=== PATIENT | female | born 1945 | race Caucasian/White ===

== ENCOUNTER 2016-08-16 16:31 | Inpatient (IN) | payer MEDICARE ==
[~2016-08-16] VITALS: Ht 165.1 cm; Wt 89.8 kg
[~2016-08-16 16:31] MED LIST: ASPI1TAB69 PO; LISI-519 PO; METF1000 PO; OXYB5TAB10 PO; PRED20 PO; SPIRCAP INH; VENTAER INH; VITA100064 PO
[2016-08-16 16:33] VITALS: BP 120/55; PULSE 123; RESP 20; TEMP 98.1; O2SAT 92
[2016-08-16] MEDS ORDERED: SODIUM CHLOR 0.9% 1000 ML INJ 1,000 ML IV SCH ×2 (16:47→18:04)
[2016-08-16] MEDS ORDERED: MORPHINE SULFATE 4 MG/ML INJ IV PUSH ONE (17:00)
--- NOTE | 2016-08-16 17:18 | PD ---
HPI Chief Complaint: Abdominal Pain Time Seen by Provider: 17:13 Travel History International Travel<30 days: No Contact w/Intl Traveler<30days: No Traveled to known affect area: No History of Present Illness HPI 71-year-old female that presents to the ED for evaluation of epigastric pain as well as chest pain. Per patient she's had this for the past 2-3 days. Per patient his been worsening with today being the worse today. Per patient he radiates to the back. Per patient she does have a history of COPD and feels short of breath. Per patient most of the pain is actually in the epigastric area on the abdomen. Per patient she's had normal bowel movements her last bowel movement being yesterday. Per patient she feels nauseous. Per patient the pain is severe sharp 8 out of 10 and feels more constant. She's not been able to eat anything because of the pain. She has not taken anything for this. Per patient she's not been able to keep anything down and she did not take any of her medications today. She has an allergy to morphine. She denies any numbness, tilling, weakness. No trauma. No sick contacts. States having chills and fevers. Per patient on she started having generalized weakness and cold like symptoms and thought he was just a cold but he never went away. Now she is worse. She denies any recent travel. Nothing seems to make the symptoms better. Touching the abdomen makes it worse. PFSH Past Medical History Cancer: Yes (OVARIAN AND CERVICAL) Cardiovascular Problems: Yes COPD: Yes Diabetes: Yes Patient Takes Glucophage: Yes Diminished Hearing: No Respiratory: Yes (COPD) Tetanus Vaccination: Unknown Past Surgical History Abdominal Surgery: Yes (HIATAL HERNIA) Appendectomy: Yes (NOT SURE) Cholecystectomy: Yes Hysterectomy: Yes Other Surgery: Yes (SPLEENECTOMY) Social History Alcohol Use: Yes (WHISKEY A NIGHT) Tobacco Use: No (QUIT 7 YRS AGO) Substance Use: No Allergies-Medications (Allergen,Severity, Reaction): Coded Allergies: Morphine (Verified Allergy, Severe, 08/16/16) Reported Meds & Prescriptions Reported Meds & Active Scripts Active Reported Vitamin D (Cholecalciferol) 1,000 Unit Tab 2,000 Units PO DAILY Ventolin Hfa 18 GM Inh (Albuterol Sulfate) 90 Mcg/Act Aer 2 Puff INH Q4-6H PRN Spiriva Handihaler (Tiotropium Inh) 18 Mcg Cap 18 Mcg INH DAILY 1 capsule = 18 mcg Prednisone 20 Mg Tab 40 Mg PO BID Ditropan (Oxybutynin Chloride) 5 Mg Tab 5 Mg PO Q12HR Aspirin 81 Mg Tabdr 81 Mg PO DAILY Metformin (Metformin HCl) 1,000 Mg Tab 1,000 Mg PO BIDPC With meals Lisinopril 5 Mg Tab 5 Mg PO DAILY Review of Systems General / Constitutional: Positive: Fever, Chills, No: Weight Gain, Weight Loss, Other Eyes: No: Diploplia, Blurred Vision, Photophobia, Drainage, Redness, Foreign Body Sensation, Pain, Tearing, Blind Spots, Visual changes, Blindness, Other HENT: Positive: Sore Throat, Rhinitis, Congestion, No: Headaches, Vertigo, Lightheadedness, Rhinorrhea, Nosebleed, Neck Stiffness, Neck Pain, Masses, Gingival Bleeding, Dental Difficulties, Ear Discharge, Earache, Other Cardiovascular: Positive: Chest Pain or Discomfort Respiratory: Positive: Cough, Shortness of Breath, Wheezing, No: Sneezing, Orthopnea, Hemoptysis, Stridor, Night Sweats, Pleuritic Pain, Other Gastrointestinal: Positive: Nausea, Vomiting, Abdominal Pain, No: Diarrhea, Hematemesis, Hematochezia, Constipation, Changes in Bowel Habits, Indigestion, Dysphagia, Loss of Appetite, Other Genitourinary: No: Urgency, Frequency, Dysuria, Nocturia, Hematuria, Decreased Urinary Output, Oliguria, Hesitancy, Dribbling, Incontinence, Pelvic Pain, Flank Pain, Dyspareunia, Discharge, Dysmenorrhea, Menorrhagia, Metorrhagia, Vaginal Bleeding, Other Musculoskeletal: No: Myalgias, Arthralgias, Limited ROM, Weakness, Cramping, Edema, Pain, Atrophy, Other Skin: No Rash, No Itching, No Dryness, No Lumps, No Hives, No Change in Pigmentation, No Change in nails, No Alopecia, No Lesions, No Breast Lumps, No Breast Tenderness, No Breast Swelling, No Other Neurologic: No: Weakness, Dizziness, Syncope, Focal Abnormalities, Coordination Problem, Tremor, Ataxia, Headache, Change in Mentation, Slurred Speech, Paresthesia, Incontinence, Seizures, Sensory Disturbance, Other Psychiatric: No: Anxiety, Depression, Suicidal Ideations, Disorder of Thought, Mood Disorder, Substance Abuse, Homicidal Ideation, Other Endocrine: No: Heat Intolerance, Cold Intolerance, Polyuria, Polydipsia, Other Hematologic/Lymphatic: No: Easy Bruising, Lymph Node Enlargement, Other Physical Exam Narrative GENERAL: Well-nourished, well-developed patient in no apparent distress. SKIN: Warm and dry. HEAD: Atraumatic. Normocephalic. EYES: Pupils equal and round reactive to light and accommodation. No scleral icterus. No injection or drainage. ENT: No nasal bleeding or discharge. Mucous membranes pink and moist. TMs are clear with no sign of infection or perforation. No mastoid tenderness. Ear canals are intact bilaterally. No lymphadenopathy. Nostril mucosa is red and moist with clear mucus noted. No sinus tenderness to palpation noted. Tonsils are not enlarged or swollen. No ulvua Deviation. Tongue is midline. NECK: Trachea midline. No JVD. No meningeal signs noted CARDIOVASCULAR: Regular rate and rhythm. RESPIRATORY: No accessory muscle use. Patient has wheezing heard in all lung johnson. Breath sounds equal bilaterally. GASTROINTESTINAL: Abdomen soft, patient has tenderness to palpation mainly in the epigastric area but diffuse., nondistended. Hepatic and splenic margins not palpable. MUSCULOSKELETAL: Extremities without clubbing, cyanosis, or edema. No obvious deformities. Full range of motion of the upper and lower extremities bilaterally. 2+ pulses bilaterally. NEUROLOGICAL: Awake and alert. No obvious cranial nerve deficits. Motor grossly within normal limits. Five out of 5 muscle strength in the arms and legs. Normal speech. PSYCHIATRIC: Appropriate mood and affect; insight and judgment normal. Data Data Last Documented VS Vital Signs Date Time Temp Pulse Resp B/P Pulse Ox O2 Delivery O2 Flow Rate FiO2 08/16/16 19:21 94 20 212/89 95 2 08/16/16 16:33 98.1 Orders Electrocardiogram (08/16/16 16:47) Complete Blood Count With Diff (08/16/16 16:47) Comprehensive Metabolic Panel (08/16/16 16:47) Ckmb (Isoenzyme) Profile (08/16/16 16:47) Troponin I (08/16/16 16:47) Prothrombin Time / Inr (Pt) (08/16/16 16:47) Act Partial Throm Time (Ptt) (08/16/16 16:47) Blood Culture (08/16/16 16:47) Lipase (08/16/16 16:47) Urinalysis - C+S If Indicated (08/16/16 16:47) Magnesium (Mg) (08/16/16 16:47) Chest, Single Ap (08/16/16 16:47) Iv Access Insert/Monitor (08/16/16 16:47) Ecg Monitoring (08/16/16 16:47) Oximetry (08/16/16 16:47) Lactic Acid (08/16/16 16:47) Morphine Inj (Morphine Inj) (08/16/16 17:00) Sodium Chlor 0.9% 1000 Ml Inj (Ns 1000 M (08/16/16 16:47) Albuterol Neb (Albuterol Neb) (08/16/16 17:00) Hydromorphone Pf Inj (Dilaudid Pf Inj) (08/16/16 17:30) Ct Abd/Pel W/O Iv Contrast (08/16/16 ) Sodium Chlor 0.9% 1000 Ml Inj (Ns 1000 M (08/16/16 18:04) Hydromorphone Pf Inj (Dilaudid Pf Inj) (08/16/16 19:45) Labs Laboratory Tests Test 08/16/16 17:20 White Blood Count 23.5 TH/MM3 Red Blood Count 4.94 MIL/MM3 Hemoglobin 14.6 GM/DL Hematocrit 45.7 % Mean Corpuscular Volume 92.4 FL Mean Corpuscular Hemoglobin 29.6 PG Mean Corpuscular Hemoglobin 32.0 % Concent Red Cell Distribution Width 15.0 % Platelet Count 339 TH/MM3 Mean Platelet Volume 10.1 FL Neutrophils (%) (Auto) 92.1 % Lymphocytes (%) (Auto) 3.0 % Monocytes (%) (Auto) 3.9 % Eosinophils (%) (Auto) 0.1 % Basophils (%) (Auto) 0.9 % Neutrophils # (Auto) 21.6 TH/MM3 Lymphocytes # (Auto) 0.7 TH/MM3 Monocytes # (Auto) 0.9 TH/MM3 Eosinophils # (Auto) 0.0 TH/MM3 Basophils # (Auto) 0.2 TH/MM3 CBC Comment DIFF FINAL Differential Comment Prothrombin Time 12.0 SEC Prothromb Time International 1.1 RATIO Ratio Activated Partial 25.0 SEC Thromboplast Time Sodium Level 135 MEQ/L Potassium Level 4.7 MEQ/L Chloride Level 100 MEQ/L Carbon Dioxide Level 21.7 MEQ/L Anion Gap 13 MEQ/L Blood Urea Nitrogen 44 MG/DL Creatinine 1.89 MG/DL Estimat Glomerular Filtration 26 ML/MIN Rate Random Glucose 165 MG/DL Lactic Acid Level 2.1 mmol/L Calcium Level 8.9 MG/DL Magnesium Level 1.2 MG/DL Total Bilirubin 0.5 MG/DL Aspartate Amino Transf 34 U/L (AST/SGOT) Alanine Aminotransferase 29 U/L (ALT/SGPT) Alkaline Phosphatase 87 U/L Total Creatine Kinase 71 U/L Troponin I LESS THAN 0.02 NG/ML Total Protein 7.7 GM/DL Albumin 3.4 GM/DL Lipase 84572 U/L [facility] Medical Decision Making Medical Screen Exam Complete: Yes Emergency Medical Condition: Yes Medical Record Reviewed: Yes Interpretation(s) Last Impressions Chest X-Ray 08/16/16 1647 Signed Impressions: Service Date/Time: Tuesday, August 16, 2016 16:59 - CONCLUSION: 1. Elevation of the left hemidiaphragm as described above. 2. Minimal bibasilar parenchymal changes. Lizandro Schuler MD FACR Abdomen/Pelvis CT 08/16/16 0000 Signed Impressions: Service Date/Time: Tuesday, August 16, 2016 18:11 - CONCLUSION: Acute pancreatitis. Severe hepatic steatosis. Status post splenectomy, cholecystectomy and hysterectomy. Nonobstructing right renal calculus. Air within the urinary bladder. No evidence of extra intestinal abscess. Mohamud Palencia MD CBC & BMP Diagram 08/16/16 17:20 LFTs within normal limits. Lipase of 10,000. Troponin negative. PT and PTT within normal limits. Differential Diagnosis Chest pain versus atypical chest pain versus acute abdomen versus gastritis versus diverticulitis versus abscess versus obstruction versus pancreatitis versus COPD exacerbation versus pneumonia Narrative Course 71-year-old female that presents to the ED for evaluation of chest pain. Patient was properly examined and was found to have signs and symptoms consistent with appears to be more like abdominal discomfort. Patient states that symptoms started with cold-like symptoms. Patient has abdominal discomfort. Patient is tachycardic on exam. Labs and imaging were ordered. Patient was given IV fluids as well as antiemetics and pain medication. Patient agrees for usto proceed with plan. Labs and imaging show what appears to be acute pancreatitis with sepsis. Likely secondary to the pancreatitis and dehydration. Patient was given IV fluids and given pain medications. Case discussed in my attending who agrees with plan. Case discussed with Dr. Glover who agrees to admission to [facility]. Sepsis Criteria SIRS Criteria (2 or more): Heart rate over 90, WBC > 65930, < 4000 or > 10% bands Sepsis Criteria (SIRS+source): Infect source susp/known Severe Sepsis (+one): Lactate >2 Criteria Outcome: Meets severe sepsis criteria Diagnosis Primary Impression: Pancreatitis, acute Qualified Code: K85.90 - Acute pancreatitis, unspecified complication status, unspecified pancreatitis type Additional Impressions: Sepsis Qualified Code: A41.9 - Sepsis, due to unspecified organism Acute kidney injury Admitting Information Admitting Physician Requests: Admit Phillip De Oliveira Aug 16, 2016 17:18
--- NOTE | 2016-08-16 17:27 | RADRPT ---
EXAM DATE/TIME: 08/16/2016 16:59 [facility] COMPARISON: CHEST PA & LAT, May 03, 2016, 11:22. INDICATIONS : Chest pain. MEDICAL HISTORY : None. SURGICAL HISTORY : None. ENCOUNTER: Initial ACUITY: 1 day PAIN SCORE: 6/10 LOCATION: Bilateral chest FINDINGS: There is elevation of the left hemidiaphragm. Minimal bibasilar parenchymal changes are noted. Hear t and pulmonary vascularity are normal. Portion of the bony skeleton visualized are unremarkable. CONCLUSION: 1. Elevation of the left hemidiaphragm as described above. 2. Minimal bibasilar parenchymal changes. Lizandro Schuler MD FACR on August 16, 2016 at 17:21 Board Certified Radiologist. This report was verified electronically.
[2016-08-16] MEDS ORDERED: HYDROmorphone HCL PF 1 MG/ML VIAL IV PUSH ONE ×2 (17:30→19:45)
[2016-08-16] MEDS: RESP: ALBUTEROL 2.5 MG/3 ML NEB (SCH) INH ×2 (17:31→17:32)
[2016-08-16 17:34] LABS: AUTOMATED NEUTROPHIL # 21.6 TH/MM3 (1.8-7.7); BASOPHIL # 0.2 TH/MM3 (0-0.2); BASOPHIL % 0.9 % (0.0-2.0); EOSINOPHIL % 0.1 % (0.0-4.0); HEMATOCRIT 45.7 % (35.0-46.0); HEMO FLAGS DIFF FINAL; LYMPHOCYTE # 0.7 TH/MM3 (1.0-4.8); MEAN CELL VOLUME 92.4 FL (80.0-100.0); MEAN CORPUSCULAR HEMOGLOBIN 29.6 PG (27.0-34.0); MONO % 3.9 % (0.0-8.0); NEUT % 92.1 % (16.0-70.0); PLATELET COUNT 339 TH/MM3 (150-450); RED BLOOD COUNT 4.94 MIL/MM3 (4.00-5.30); WHITE BLOOD COUNT 23.5 TH/MM3 (4.0-11.0)
[2016-08-16 17:40] VITALS: O2SAT 99
[2016-08-16 17:43] VITALS: BP 183/84; PULSE 105; RESP 22; O2SAT 99
[2016-08-16 17:46] LABS: INTERNATIONAL NORMALIZED RATIO 1.1 RATIO
[2016-08-16 17:56] LABS: ALKALINE PHOSPHATASE 87 U/L (45-117); ALT (GPT) 29 U/L (10-53); ANION GAP 13 MEQ/L (5-15); AST (GOT) 34 U/L (15-37); BICARBONATE 21.7 MEQ/L (21.0-32.0); BLOOD UREA NITROGEN 44 MG/DL (7-18); CHLORIDE 100 MEQ/L (98-107); GLOMERULAR FILTRATION RATE 26 ML/MIN (>89); MAGNESIUM 1.2 MG/DL (1.5-2.5); POTASSIUM 4.7 MEQ/L (3.5-5.1); SODIUM (NA) 135 MEQ/L (136-145); TOTAL BILIRUBIN ADULT 0.5 MG/DL (0.2-1.0)
[2016-08-16 17:59] LABS: CREATINE KINASE 71 U/L (26-192)
--- NOTE | 2016-08-16 19:16 | RADRPT ---
EXAM DATE/TIME: 08/16/2016 18:11 [facility] COMPARISON: No previous studies available for comparison. INDICATIONS : Epigastric pain since yesterday. ORAL CONTRAST: No oral contrast ingested. RADIATION DOSE: 10.03 CTDIvol (mGy) MEDICAL HISTORY : Hernia, hiatal. diabetes, ovarian cancer, cervical cancer SURGICAL HISTORY : Hysterectomy. Appendectomy. ENCOUNTER: Initial ACUITY: 2 days PAIN SCALE: 6/10 LOCATION: epigastric abdomen TECHNIQUE: Volumetric scanning of the abdomen and pelvis was performed. Using automated exposure control and ad justment of the mA and/or kV according to patient size, radiation dose was kept as low as reasonably achievable to obtain optimal diagnostic quality images. FINDINGS: LOWER LUNGS: The visualized lower lungs are clear except for mild parenchymal scarring. LIVER: The liver is diffusely hypodense. There are no focal lesions or evidence of biliary duct dilatation. Postcholecystectomy clips are noted. SPLEEN: Spleen appears to have been removed. A small residual splenic remnant is noted. Small fluid collectio n is identified in the left subphrenic region. PANCREAS: Generalized peripancreatic inflammation is identified. The inflammation extends caudally into the ant erior pararenal space and mesentery. KIDNEYS: Small calculus is identified in the right kidney. There is no evidence of hydronephrosis. Kidneys are small. ADRENAL GLANDS: 18 mm hypodense nodule is identified in the left adrenal gland. VASCULAR: There is no aortic aneurysm. BOWEL/MESENTERY: The stomach, small bowel, and colon demonstrate no acute abnormality. There is no free intraperitone al air or fluid. ABDOMINAL WALL: Within normal limits. RETROPERITONEUM: There is no lymphadenopathy. BLADDER: Air is identified in the urinary bladder. REPRODUCTIVE: Uterus has been removed. There are no central pelvic or adnexal masses. INGUINAL: There is no lymphadenopathy or hernia. MUSCULOSKELETAL: Within normal limits for patient age. CONCLUSION: Acute pancreatitis. Severe hepatic steatosis. Status post splenectomy, cholecystectomy and hysterectomy. Nonobstructing right renal calculus. Air within the urinary bladder. No evidence of extra intestinal abscess. Mohamud Palencia MD on August 16, 2016 at 19:07 Board Certified Radiologist. This report was verified electronically.
[2016-08-16 19:21] VITALS: BP 212/89; PULSE 94; RESP 20; O2SAT 95
[2016-08-16] MEDS ORDERED: SODIUM CHLOR 0.45% 1000 ML INJ 1,000 ML IV SCH (20:59)
[2016-08-16] MEDS ORDERED: ONDANSETRON HCL 4 MG/2 ML VIAL IVP PRN (21:00)
[2016-08-16] MEDS ORDERED: SODIUM CHLORIDE 0.9% FLUSH 5 ML FLUSH FLUSH PRN (21:00)
[2016-08-16] MEDS ORDERED: ALBUTEROL SULFATE 90 MCG/ACT HFA 8 GM INHALER INH PRN (21:00)
[2016-08-16] MEDS ORDERED: NALOXONE HCL 0.4 MG/ML AMP IV PRN (21:00)
[2016-08-16] MEDS ORDERED: ENALAPRILAT 1.25 MG/ML VIAL IV PUSH PRN (21:00)
[2016-08-16 21:04] VITALS: BP 185/84; PULSE 93; RESP 18; O2SAT 95
--- NOTE | 2016-08-16 21:17 | HHI.HP ---
HPI Service [facility] Hospitalists Primary Care Physician Frankie Jaeger Admission Diagnosis acute pancreatitis, sepsis, acute kidney injury Chief Complaint: abdominal pain cough increasing over 3 days Travel History International Travel<30 Days: No Contact w/Intl Traveler <30 Da: No Traveled to Known Affected Are: No Sepsis Criteria SIRS Criteria (2 or more): Heart rate over 90, WBC > 97308, < 4000 or > 10% bands Severe Sepsis (+one): Lactate >2 History of Present Illness 71-year-old female that presents to the ED for evaluation of epigastric pain as well as chest pain. Per patient she's had this for the past 2-3 days. Per patient his been worsening with today being the worse today. Per patient he radiates to the back. Per patient she does have a history of COPD and feels short of breath. Per patient most of the pain is actually in the epigastric area on the abdomen. Per patient she's had normal bowel movements her last bowel movement being yesterday. Patient has had nausea. Per patient the pain is severe sharp 8 out of 10 and feels more constant. She's not been able to eat anything because of the pain. She has not taken anything for this. Per patient she's not been able to keep anything down and she did not take any of her medications today. She has an allergy to morphine. She denies any numbness , tilling, weakness. No trauma. No sick contacts. States having chills and fevers. Per patient on she started having generalized weakness and cold like symptoms and thought he was just a cold but he never went away. Now she is worse. She denies any recent travel. Nothing seems to make the symptoms better. Touching the abdomen makes it worse. Lab and CT show acute pancreatitis with lab evidence of sepsis will admit ,patient was on medication for recent UTI. Review of Systems Constitutional: COMPLAINS OF: Fatigue, Fever, Change in appetite Respiratory: COMPLAINS OF: Cough, Shortness of breath Gastrointestinal: COMPLAINS OF: Abdominal pain, Nausea Past Family Social History Past Medical History dm,hypertension,,hiatal hernia,copd Past Surgical History spleen,appendix Reported Medications nebulizer,prednisone when has exacerbations of copd,ditropan 5mg,asa,metformin 1000 bid,gliperide,lisinopril Allergies: Coded Allergies: Morphine (Verified Allergy, Severe, 08/16/16) Social History whiskey daily former smoker Physical Exam Vital Signs Vital Signs Date Time Temp Pulse Resp B/P Pulse Ox O2 Delivery O2 Flow Rate FiO2 08/16/16 19:21 94 20 212/89 95 2 08/16/16 17:43 105 22 183/84 99 08/16/16 17:40 99 08/16/16 16:33 98.1 123 20 120/55 92 Physical Exam GENERAL: This is a well-nourished, well-developed patient, in no apparent distress. SKIN: No rashes, ecchymoses or lesions. Cool and dry. HEAD: Atraumatic. Normocephalic. No temporal or scalp tenderness. EYES: Pupils equal round and reactive. Extraocular motions intact. No scleral icterus. No injection or drainage. ENT: Nose without bleeding, purulent drainage or septal hematoma. Throat without erythema, tonsillar hypertrophy or exudate. Uvula midline. Airway patent. NECK: Trachea midline. No JVD or lymphadenopathy. Supple, nontender, no meningeal signs. CARDIOVASCULAR: Regular rate and rhythm without murmurs, gallops, or rubs. RESPIRATORY: Clear to auscultation. Breath sounds equal bilaterally. No wheezes , rales, or rhonchi. GASTROINTESTINAL: Abdomen -tender to palpation no rebound, nondistended. No hepato-splenomegaly, or palpable masses. mild guarding. MUSCULOSKELETAL: Extremities without clubbing, cyanosis, or edema. No joint tenderness, effusion, or edema noted. No calf tenderness. Negative Homans sign bilaterally. NEUROLOGICAL: Awake and alert. Cranial nerves II through XII intact. Motor and sensory grossly within normal limits. Five out of 5 muscle strength in all muscle groups. Normal speech. Laboratory Laboratory Tests Test 08/16/16 17:20 White Blood Count 23.5 Red Blood Count 4.94 Hemoglobin 14.6 Hematocrit 45.7 Mean Corpuscular Volume 92.4 Mean Corpuscular Hemoglobin 29.6 Mean Corpuscular Hemoglobin 32.0 Concent Red Cell Distribution Width 15.0 Platelet Count 339 Mean Platelet Volume 10.1 Neutrophils (%) (Auto) 92.1 Lymphocytes (%) (Auto) 3.0 Monocytes (%) (Auto) 3.9 Eosinophils (%) (Auto) 0.1 Basophils (%) (Auto) 0.9 Neutrophils # (Auto) 21.6 Lymphocytes # (Auto) 0.7 Monocytes # (Auto) 0.9 Eosinophils # (Auto) 0.0 Basophils # (Auto) 0.2 CBC Comment DIFF FINAL Differential Comment Prothrombin Time 12.0 Prothromb Time International 1.1 Ratio Activated Partial 25.0 Thromboplast Time Sodium Level 135 Potassium Level 4.7 Chloride Level 100 Carbon Dioxide Level 21.7 Anion Gap 13 Blood Urea Nitrogen 44 Creatinine 1.89 Estimat Glomerular Filtration 26 Rate Random Glucose 165 Lactic Acid Level 2.1 Calcium Level 8.9 Magnesium Level 1.2 Total Bilirubin 0.5 Aspartate Amino Transf 34 (AST/SGOT) Alanine Aminotransferase 29 (ALT/SGPT) Alkaline Phosphatase 87 Total Creatine Kinase 71 Troponin I LESS THAN 0.02 Total Protein 7.7 Albumin 3.4 Lipase 01853 Date/Time Procedure Status Source Growth 08/16/16 17:20 Aerobic Blood Culture Received Blood Peripheral Pending 08/16/16 17:20 Anaerobic Blood Culture Received Blood Peripheral Pending Result Diagram: 08/16/16 1720 08/16/16 1720 Imaging Last 24 hours Impressions Chest X-Ray 08/16/16 1647 Signed Impressions: Service Date/Time: Tuesday, August 16, 2016 16:59 - CONCLUSION: 1. Elevation of the left hemidiaphragm as described above. 2. Minimal bibasilar parenchymal changes. Lizandro Schuler MD FACR Abdomen/Pelvis CT 08/16/16 0000 Signed Impressions: Service Date/Time: Tuesday, August 16, 2016 18:11 - CONCLUSION: Acute pancreatitis. Severe hepatic steatosis. Status post splenectomy, cholecystectomy and hysterectomy. Nonobstructing right renal calculus. Air within the urinary bladder. No evidence of extra intestinal abscess. Mohamud Palencia MD Course in er given hydromorph for pain started on IV fluids as labs do show renal insufficency Assessment and Plan Problem List: (1) Pancreatitis, acute Status: Acute Plan: plan IV fluid follow labs pain control consult GI (2) Sepsis Status: Acute Plan: related to pancreatitis will get blood cultures and start zosyn antibiotics follow labs (3) Acute kidney injury Status: Acute Plan: do not have baseline will give IV fluid and recheck labs in am (4) Diabetes Status: Chronic Plan: patient NPO will use sliding scale and hold metformin and other po medication (5) Hypertension Status: Chronic Plan: use vasotec prn Assessment and Plan further plan as case develops Code Status full Discussed Condition With patient Physician Certification 2 Midnight Certification Type: Admission for Inpatient Services Order for Inpatient Services The services are ordered in accordance with Medicare regulations or non- Medicare payer requirements, as applicable. In the case of services not specified as inpatient-only, they are appropriately provided as inpatient services in accordance with the 2-midnight benchmark. Estimated LOS (days): 3 3 days is the estimated time the patient will need to remain in the hospital, assuming treatment plan goals are met and no additional complications. Post-Hospital Plan: Not yet determined Problem Qualifiers (1) Pancreatitis, acute: Qualified Code: K85.90 - Acute pancreatitis, unspecified complication status, unspecified pancreatitis type (2) Sepsis: Qualified Code: A41.9 - Sepsis, due to unspecified organism (3) Diabetes: Raymundo Bradford MD Aug 16, 2016 21:17
[2016-08-16] MEDS ORDERED: GLUCAGON 1 MG/ML VIAL OTHER PRN (21:30)
[2016-08-16] MEDS ORDERED: DEXTROSE 50% IN WATER 50 ML VIAL(D50) IV PUSH PRN (21:30)
[2016-08-16] MEDS: SODIUM CHLORIDE 0.9% FLUSH 5 ML FLUSH FLUSH SCH (21:46)
[2016-08-16] MEDS: HYDROmorphone HCL PF 1 MG/ML VIAL IV PRN (21:51)
[2016-08-16 22:10] VITALS: BP 162/76; PULSE 92; RESP 18; O2SAT 96
[2016-08-16] MEDS: PIPERACIL-TAZO 3.375 GM PREMIX 50 ML IV SCH (22:18)
[2016-08-16] MEDS: OXYBUTYNIN CHLORIDE 5 MG TAB PO SCH (22:24)
[2016-08-17] VITALS (8 sets, daily range): BP systolic 113–152; BP diastolic 65–80; PULSE 99–110; RESP 18–20; TEMP 95.9–99.2; O2SAT 94–96
[2016-08-17] MEDS: HYDROmorphone HCL PF 1 MG/ML VIAL IV PRN ×5 (01:08→21:54)
[2016-08-17] MEDS: PIPERACIL-TAZO 3.375 GM PREMIX 50 ML IV SCH ×3 (05:21→21:43)
[2016-08-17] MEDS: INSULIN ASPART SUPPLEMENTAL SCALE SQ SCH ×4 (05:23→21:55)
[2016-08-17 07:58] LABS: AUTOMATED NEUTROPHIL # 23.2 TH/MM3 (1.8-7.7); BASOPHIL % 0.1 % (0.0-2.0); HEMATOCRIT 38.5 % (35.0-46.0); HEMO FLAGS DIFF FINAL; LYMPH % 3.9 % (9.0-44.0); MEAN CELL VOLUME 92.3 FL (80.0-100.0); MEAN CORPUSCULAR HEMOGLOBIN 29.5 PG (27.0-34.0); MEAN CORPUSCULAR HGB CONC 31.9 % (32.0-36.0); MONO % 7.6 % (0.0-8.0); NEUT % 88.4 % (16.0-70.0); PLATELET COUNT 281 TH/MM3 (150-450); RED BLOOD COUNT 4.17 MIL/MM3 (4.00-5.30); RED CELL DISTRIBUTION WIDTH 14.7 % (11.6-17.2); WHITE BLOOD COUNT 26.2 TH/MM3 (4.0-11.0)
[2016-08-17] MEDS: RESP: ALBUTEROL 2.5 MG/IPRATROPIUM 0.5 MG NEB (SCH) NEB ×3 (08:00→20:46)
[2016-08-17 08:26] LABS: BICARBONATE 20.8 MEQ/L (21.0-32.0); CALCIUM-PROTEIN CORRECTED 7.9 MG/DL (8.5-10.1); POTASSIUM 4.1 MEQ/L (3.5-5.1); TOTAL BILIRUBIN ADULT 0.6 MG/DL (0.2-1.0)
[2016-08-17] MEDS: TIOTROPIUM BROMIDE 18 MCG INH INH SCH (09:00)
[2016-08-17] MEDS: OXYBUTYNIN CHLORIDE 5 MG TAB PO SCH ×2 (09:01→21:51)
[2016-08-17] MEDS: ASPIRIN EC 81 MG TABEC PO SCH (09:01)
[2016-08-17] MEDS: CHOLECALCIFEROL (VIT D3) 1000 UNIT TAB PO SCH (09:01)
[2016-08-17] MEDS: SODIUM CHLORIDE 0.9% FLUSH 5 ML FLUSH FLUSH SCH ×2 (09:02→21:56)
--- NOTE | 2016-08-17 09:52 | PD.CONS ---
HPI History of Present Illness This is a 71 year old female with history of DM, HTN, COPD who is here for evaluation of acute onset of severe epigastric pain since Tuesday. The pain radiates to back and bilateral upper abdomen sides, she reports fever, chills, nausea but no vomiting, stating " I had Vielka fundoplication and can't vomit". The pain is severe sharp 8 out of 10 and feels more constant. She's not been able to eat anything because of the pain. She denies diarrhea, hematochezia, melena or change in bowels. Lab and CT show acute pancreatitis with evidence of sepsis (elevated WBC, and lactic acid). Lipase was 14905--->5181, LFTs normal on admission, slight elevation today in AST She was on recent abx for bronchitis , can't recall the name. She was started 2 weeks ago on Toviaz for bladder issues. she drinks a couple of drinks daily. This is first episode of pancreatitis. Patient has hx of splenectomy, cholecystectomy. (Jose David Barragan) PFSH Past Medical History Dm,hypertension,,hiatal hernia,copd ovarian and cervical cancer s/p radiation Past Surgical History splenectomy Appendectomy cholecystectomy Hysterectomy Fundoplication Hernia repair (Jose David Barragan) Coded Allergies: Morphine (Verified Allergy, Severe, 08/16/16) Medications Current Medications Medications (Trade) Dose Ordered Sig/Ann Route Start Time Stop Time Status Last Admin (Proair Hfa Inh) 2 puff Q8HR PRN INH 08/16/16 21:00 (Ecotrin Ec) 81 mg DAILY PO 08/17/16 09:00 08/17/16 09:01 (Vitamin D3) 2,000 units DAILY PO 08/17/16 09:00 08/17/16 09:01 (Ditropan) 5 mg Q12HR PO 08/16/16 21:00 08/17/16 09:01 (Spiriva Inh) 18 mcg DAILY INH 08/17/16 09:00 Enalaprilat 1.25 mg 1.25 mg Q6H PRN IV PUSH 08/16/16 21:00 08/16/16 21:52 (1/2 NS 1000 ml Inj) 1,000 ml @ 75 mls/hr [id number] IV 08/16/16 20:59 08/16/16 21:46 (NS Flush) 2 ml UNSCH PRN FLUSH 08/16/16 21:00 (NS Flush) 2 ml BID FLUSH 08/16/16 21:00 08/17/16 09:02 (Zofran Inj) 4 mg Q6H PRN IVP 08/16/16 21:00 (Dilaudid Pf Inj) 0.5 mg Q3H PRN IV 08/16/16 21:00 08/17/16 05:21 Naloxone HCl 0.4 mg 0.4 mg UNSCH PRN IV 08/16/16 21:00 (Zosyn 3.375 Gm Premix) 50 ml @ 100 mls/hr Q8HR IV 08/16/16 22:00 08/17/16 05:21 (D50w (Vial) Inj) 25 ml UNSCH PRN IV PUSH 08/16/16 21:30 (Glucagon Inj) 1 mg UNSCH PRN OTHER 08/16/16 21:30 Family History mother had colon cancer Social History whiskey daily former smoker no illicit drug use (Jose David Barragan) Review of Systems Constitutional: COMPLAINS OF: Fever, Chills Endocrine: DENIES: Polyuria Eyes: DENIES: Double Vision Ears, nose, mouth, throat: DENIES: Hoarseness Respiratory: COMPLAINS OF: Shortness of breath Gastrointestinal: COMPLAINS OF: Abdominal pain, Nausea, DENIES: Black stools, Bloody stools, Constipation, Diarrhea, Vomiting, Difficulty Swallowing, Anorexia , Odynophagia, Swelling of Abdomen, Heartburn, Hematemesis Genitourinary: DENIES: Hematuria Musculoskeletal: COMPLAINS OF: Back pain Integumentary: DENIES: Jaundice Hematologic/lymphatic: DENIES: Bruising Immunologic/allergic: DENIES: Eczema Neurologic: DENIES: Abnormal gait Psychiatric: DENIES: Anxiety (Jose David Barragan) GI Exam Vitals I&O Vital Signs Date Time Temp Pulse Resp B/P Pulse Ox O2 Delivery O2 Flow Rate FiO2 08/17/16 08:00 94 Nasal Cannula 2.00 08/17/16 08:00 98.1 105 20 141/71 94 08/17/16 05:22 97.0 101 18 150/80 94 08/17/16 01:40 18 08/17/16 00:48 97.6 99 18 152/66 96 08/16/16 23:54 20 08/16/16 22:10 92 18 162/76 96 Nasal Cannula 2 08/16/16 21:04 93 18 185/84 95 Room Air 08/16/16 19:21 94 20 212/89 95 2 08/16/16 19:21 95 Nasal Cannula 1.00 08/16/16 17:43 105 22 183/84 99 08/16/16 17:40 99 08/16/16 16:33 98.1 123 20 120/55 92 Imaging Last Impressions Chest X-Ray 08/16/16 1647 Signed Impressions: Service Date/Time: Tuesday, August 16, 2016 16:59 - CONCLUSION: 1. Elevation of the left hemidiaphragm as described above. 2. Minimal bibasilar parenchymal changes. Lizandro Schuler MD FACR Abdomen/Pelvis CT 08/16/16 0000 Signed Impressions: Service Date/Time: Tuesday, August 16, 2016 18:11 - CONCLUSION: Acute pancreatitis. Severe hepatic steatosis. Status post splenectomy, cholecystectomy and hysterectomy. Nonobstructing right renal calculus. Air within the urinary bladder. No evidence of extra intestinal abscess. Mohamud Palencia MD Laboratory Test 08/16/16 08/17/16 17:20 07:12 White Blood Count 23.5 TH/MM3 26.2 TH/MM3 Red Blood Count 4.94 MIL/MM3 4.17 MIL/MM3 Hemoglobin 14.6 GM/DL 12.3 GM/DL Hematocrit 45.7 % 38.5 % Mean Corpuscular Volume 92.4 FL 92.3 FL Mean Corpuscular Hemoglobin 29.6 PG 29.5 PG Mean Corpuscular Hemoglobin 32.0 % 31.9 % Concent Red Cell Distribution Width 15.0 % 14.7 % Platelet Count 339 TH/MM3 281 TH/MM3 Mean Platelet Volume 10.1 FL 10.0 FL Neutrophils (%) (Auto) 92.1 % 88.4 % Lymphocytes (%) (Auto) 3.0 % 3.9 % Monocytes (%) (Auto) 3.9 % 7.6 % Eosinophils (%) (Auto) 0.1 % 0.0 % Basophils (%) (Auto) 0.9 % 0.1 % Neutrophils # (Auto) 21.6 TH/MM3 23.2 TH/MM3 Lymphocytes # (Auto) 0.7 TH/MM3 1.0 TH/MM3 Monocytes # (Auto) 0.9 TH/MM3 2.0 TH/MM3 Eosinophils # (Auto) 0.0 TH/MM3 0.0 TH/MM3 Basophils # (Auto) 0.2 TH/MM3 0.0 TH/MM3 CBC Comment DIFF FINAL DIFF FINAL Differential Comment Prothrombin Time 12.0 SEC Prothromb Time International 1.1 RATIO Ratio Activated Partial 25.0 SEC Thromboplast Time Sodium Level 135 MEQ/L 138 MEQ/L Potassium Level 4.7 MEQ/L 4.1 MEQ/L Chloride Level 100 MEQ/L 105 MEQ/L Carbon Dioxide Level 21.7 MEQ/L 20.8 MEQ/L Anion Gap 13 MEQ/L 12 MEQ/L Blood Urea Nitrogen 44 MG/DL 37 MG/DL Creatinine 1.89 MG/DL 1.49 MG/DL Estimat Glomerular Filtration 26 ML/MIN 35 ML/MIN Rate Random Glucose 165 MG/DL 73 MG/DL Lactic Acid Level 2.1 mmol/L Calcium Level 8.9 MG/DL 7.4 MG/DL Magnesium Level 1.2 MG/DL Total Bilirubin 0.5 MG/DL 0.6 MG/DL Aspartate Amino Transf 34 U/L 44 U/L (AST/SGOT) Alanine Aminotransferase 29 U/L 30 U/L (ALT/SGPT) Alkaline Phosphatase 87 U/L 77 U/L Total Creatine Kinase 71 U/L Troponin I LESS THAN 0.02 NG/ML Total Protein 7.7 GM/DL 6.1 GM/DL Albumin 3.4 GM/DL 2.8 GM/DL Lipase 78048 U/L 5181 U/L Protein Corrected Calcium 7.9 MG/DL Date/Time Procedure Status Source Growth 08/16/16 17:20 Aerobic Blood Culture Received Blood Peripheral Pending 08/16/16 17:20 Anaerobic Blood Culture Received Blood Peripheral Pending Physical Examination HEENT: normocephalic; atraumatic; no jaundice. NECK: Neck is supple, no JVD, no lymphadenopathy. CHEST: Chest is clear to auscultation and percussion. CARDIAC: Regular rate and rhythm with no murmur gallop or rubs. ABDOMEN: Soft, nondistended, epigastric tenderness, bowel sounds are present in all four quadrants. EXTREMITIES: No clubbing, cyanosis, or edema. SKIN: Normal; no rash; no jaundice. GENERATOR MECHANIC: No focal deficits; alert and oriented times three. (Jose David Barragan) Assessment and Plan Plan - Acute pancreatitis/first episode- This could be secondary to alcohol intake, or abx She was on recent abx for bronchitis,can't recall the name, She was started 2 weeks ago on Toviaz for bladder issues. patient has hx of cholecystectomy, [place] 17797--->5181, LFTs normal on admission, slight elevation today in AST she drinks a couple of drinks daily Zosyn, NPO. Lipase trending down - Sepsis- elevated WBC, lactic acid, fever,abx - Fatty liver- she drinks daily, LFTs with slight elevation in AST, will order hepatitis panel - DOLLY- IV - DM, HTN per attending Plan: - NPO - aggressive hydration - Monitor labs - Hepatitis panel - IGG-4 - Triglycerides - consider EGD once stable - alcohol cessation - Supportive care - Patient seen and examined by dr. Bartlett and myself and this note is written on his behalf. (Jose David Barragan) Physician Comments Patient seen and examined Agree with above Continue with current supportive care Monitor labs (Kevin Bartlett MD) Jose David Barragan Aug 17, 2016 09:52 Kevin Bartlett MD Aug 17, 2016 21:39
--- NOTE | 2016-08-17 12:57 | HHI.PR ---
Subjective Remarks Pt reports that her pain is better controlled today She still has nausea but no vomiting. Pt has been afebrile since admission but had been having low grade fevers prior to admission. Denies any diarrhea. She states that she can't vomit because she has had a Vielka Fundoplication Objective Vitals Vital Signs Date Time Temp Pulse Resp B/P Pulse Ox O2 Delivery O2 Flow Rate FiO2 08/17/16 08:00 94 Nasal Cannula 2.00 08/17/16 08:00 98.1 105 20 141/71 94 08/17/16 05:22 97.0 101 18 150/80 94 08/17/16 01:40 18 08/17/16 00:48 97.6 99 18 152/66 96 08/16/16 23:54 20 08/16/16 22:10 92 18 162/76 96 Nasal Cannula 2 08/16/16 21:04 93 18 185/84 95 Room Air 08/16/16 19:21 94 20 212/89 95 2 08/16/16 19:21 95 Nasal Cannula 1.00 08/16/16 17:43 105 22 183/84 99 08/16/16 17:40 99 08/16/16 16:33 98.1 123 20 120/55 92 Result Diagram: 08/17/16 0712 08/17/16 0712 Other Results Laboratory Tests Test 08/16/16 08/17/16 17:20 07:12 White Blood Count 23.5 TH/MM3 26.2 TH/MM3 Red Blood Count 4.94 MIL/MM3 4.17 MIL/MM3 Hemoglobin 14.6 GM/DL 12.3 GM/DL Hematocrit 45.7 % 38.5 % Mean Corpuscular Volume 92.4 FL 92.3 FL Mean Corpuscular Hemoglobin 29.6 PG 29.5 PG Mean Corpuscular Hemoglobin 32.0 % 31.9 % Concent Red Cell Distribution Width 15.0 % 14.7 % Platelet Count 339 TH/MM3 281 TH/MM3 Mean Platelet Volume 10.1 FL 10.0 FL Neutrophils (%) (Auto) 92.1 % 88.4 % Lymphocytes (%) (Auto) 3.0 % 3.9 % Monocytes (%) (Auto) 3.9 % 7.6 % Eosinophils (%) (Auto) 0.1 % 0.0 % Basophils (%) (Auto) 0.9 % 0.1 % Neutrophils # (Auto) 21.6 TH/MM3 23.2 TH/MM3 Lymphocytes # (Auto) 0.7 TH/MM3 1.0 TH/MM3 Monocytes # (Auto) 0.9 TH/MM3 2.0 TH/MM3 Eosinophils # (Auto) 0.0 TH/MM3 0.0 TH/MM3 Basophils # (Auto) 0.2 TH/MM3 0.0 TH/MM3 CBC Comment DIFF FINAL DIFF FINAL Differential Comment Prothrombin Time 12.0 SEC Prothromb Time International 1.1 RATIO Ratio Activated Partial 25.0 SEC Thromboplast Time Sodium Level 135 MEQ/L 138 MEQ/L Potassium Level 4.7 MEQ/L 4.1 MEQ/L Chloride Level 100 MEQ/L 105 MEQ/L Carbon Dioxide Level 21.7 MEQ/L 20.8 MEQ/L Anion Gap 13 MEQ/L 12 MEQ/L Blood Urea Nitrogen 44 MG/DL 37 MG/DL Creatinine 1.89 MG/DL 1.49 MG/DL Estimat Glomerular Filtration 26 ML/MIN 35 ML/MIN Rate Random Glucose 165 MG/DL 73 MG/DL Lactic Acid Level 2.1 mmol/L Calcium Level 8.9 MG/DL 7.4 MG/DL Magnesium Level 1.2 MG/DL Total Bilirubin 0.5 MG/DL 0.6 MG/DL Aspartate Amino Transf 34 U/L 44 U/L (AST/SGOT) Alanine Aminotransferase 29 U/L 30 U/L (ALT/SGPT) Alkaline Phosphatase 87 U/L 77 U/L Total Creatine Kinase 71 U/L Troponin I LESS THAN 0.02 NG/ML Total Protein 7.7 GM/DL 6.1 GM/DL Albumin 3.4 GM/DL 2.8 GM/DL Lipase 79755 U/L 5181 U/L Protein Corrected Calcium 7.9 MG/DL Imaging Last 24 hours Impressions Chest X-Ray 08/16/16 1647 Signed Impressions: Service Date/Time: Tuesday, August 16, 2016 16:59 - CONCLUSION: 1. Elevation of the left hemidiaphragm as described above. 2. Minimal bibasilar parenchymal changes. Lizandro Schuler MD FACR Abdomen/Pelvis CT 08/16/16 0000 Signed Impressions: Service Date/Time: Tuesday, August 16, 2016 18:11 - CONCLUSION: Acute pancreatitis. Severe hepatic steatosis. Status post splenectomy, cholecystectomy and hysterectomy. Nonobstructing right renal calculus. Air within the urinary bladder. No evidence of extra intestinal abscess. Mohamud Palencia MD Objective Remarks General: NAD, AAOx3 Chest: Bilateral wheeze Cardiac: Regular Abd: +BS, mildly distended, epigastric tenderness Ext: No edema A/P Problem List: (1) Pancreatitis, acute Status: Acute Plan: - Pt admitted with 3 days of nausea and abd pain with reported low grade fevers - Labs at admission revealed Lipase over 10,000 - CT Abd/pelvis (08/16) --> Acute pancreatitis, severe hepatic steatosis, s/p splenectomy, cholecystectomy and hysterectomy, nonobstructing right renal calculus, and air within the urinary bladder. - Could be alcohol induced pancreatitis vs. medication induced vs. combination of the two. - Pt admits to daily alcohol use, drinks 3-4 whiskey drinks per day. - Pt had also recently been started on Doxycycline 100mg po BID for dysuria and Toviaz 4mg daily for overactive bladder on 08/06/16. - GI is consulted. - Pt is NPO - Cont. IVF but increase the rate to 125ml/hr of NS, monitor for any signs of volume overload. - Pain meds PRN - Triglycerides and IgG4 are ordered - Alcohol withdrawal precautions. - Ativan PRN - Recheck Lipase, CMP, CBC in AM - Supportive care - DVT prophylaxis with SCDs (2) Sepsis Status: Acute Plan: - Pt admitted with leukocytosis, elevated lactic acid level, and tachycardia - This may likely reactive secondary to pancreatitis - Blood cultures (08/16) with no growth x 1 day - Pt was started on Zosyn at admission. - WBC count increased to 26.2 today - UA is ordered - Monitor labs (3) Acute kidney injury Status: Acute Plan: - Review of outpt labs indicate baseline CKD, stage 3 with GFR in the mid 40's - Labs at admission were acutely worsened from baseline. - Pt had improvement with IVF - Monitor labs (4) COPD (chronic obstructive pulmonary disease) Status: Chronic Plan: - Pt with a hx of COPD and reports that she recently had an acute exacerbation around 4-5 weeks ago and was on Steroids and Abx but she completed these around 4 weeks ago - Cont. home meds - Duonebs Q6HWA and Q2H PRN - Supplemental O2 as needed (5) Diabetes Status: Chronic Plan: - Hold OHA (Glimepiride 1mg daily, Metformin 1000mg BID) - NovoLog SSI - Accu checks (6) Hypertension Status: Chronic Plan: - Hold Lisinopril 5mg po daily - Clonidine PRN Assessment and Plan Patient examined. Assessment and plan formulated with Luna Hamilton PA-C. I agree with the above. Problem Qualifiers (1) Pancreatitis, acute: Qualified Code: K85.90 - Acute pancreatitis, unspecified complication status, unspecified pancreatitis type (2) Sepsis: Qualified Code: A41.9 - Sepsis, due to unspecified organism (3) Diabetes: Qualified Code: E11.8 - Type 2 diabetes mellitus with complication, without long-term current use of insulin (4) Hypertension: Qualified Code: I10 - Essential hypertension Luna Hamilton Aug 17, 2016 12:57 Carroll Evangelista DO Aug 18, 2016 15:02
[2016-08-17] MEDS ORDERED: cloNIDine HCL 0.1 MG TAB PO PRN (13:15)
[2016-08-17] MEDS: SODIUM CHLOR 0.9% 1000 ML INJ 1,000 ML IV SCH (13:15)
[2016-08-17] MEDS ORDERED: LORazepam 2 MG/ML VIAL IV PUSH PRN (13:30)
[2016-08-18] VITALS (9 sets, daily range): BP systolic 103–150; BP diastolic 61–70; PULSE 99–118; RESP 18–24; TEMP 95.8–99.2; O2SAT 93–96
[2016-08-18] MEDS: HYDROmorphone HCL PF 1 MG/ML VIAL IV PRN ×5 (01:16→21:03)
[2016-08-18] MEDS: SODIUM CHLOR 0.9% 1000 ML INJ 1,000 ML IV SCH (04:15)
[2016-08-18] MEDS: PIPERACIL-TAZO 3.375 GM PREMIX 50 ML IV SCH ×3 (06:09→21:04)
[2016-08-18] MEDS: INSULIN ASPART SUPPLEMENTAL SCALE SQ SCH ×4 (06:10→21:08)
[2016-08-18] MEDS: RESP: ALBUTEROL 2.5 MG/IPRATROPIUM 0.5 MG NEB (SCH) NEB ×3 (07:42→19:59)
[2016-08-18] MEDS: TIOTROPIUM BROMIDE 18 MCG INH INH SCH (09:00)
[2016-08-18 09:27] LABS: AUTOMATED NEUTROPHIL # 21.7 TH/MM3 (1.8-7.7); BASOPHIL % 0.1 % (0.0-2.0); EOSINOPHIL % 0.1 % (0.0-4.0); HEMATOCRIT 33.4 % (35.0-46.0); HEMO FLAGS DIFF FINAL; LYMPH % 5.2 % (9.0-44.0); LYMPHOCYTE # 1.3 TH/MM3 (1.0-4.8); MEAN CELL VOLUME 92.4 FL (80.0-100.0); MEAN CORPUSCULAR HEMOGLOBIN 29.2 PG (27.0-34.0); MEAN CORPUSCULAR HGB CONC 31.6 % (32.0-36.0); MONO % 6.1 % (0.0-8.0); NEUT % 88.5 % (16.0-70.0); PLATELET COUNT 247 TH/MM3 (150-450); RED BLOOD COUNT 3.62 MIL/MM3 (4.00-5.30); RED CELL DISTRIBUTION WIDTH 15.1 % (11.6-17.2); WHITE BLOOD COUNT 24.5 TH/MM3 (4.0-11.0)
[2016-08-18 10:02] LABS: POTASSIUM 3.7 MEQ/L (3.5-5.1); TOTAL BILIRUBIN ADULT 0.6 MG/DL (0.2-1.0)
[2016-08-18 10:16] LABS: CALCIUM-PROTEIN CORRECTED 7.4 MG/DL (8.5-10.1)
[2016-08-18] MEDS: ASPIRIN EC 81 MG TABEC PO SCH (10:55)
[2016-08-18] MEDS: CHOLECALCIFEROL (VIT D3) 1000 UNIT TAB PO SCH (10:56)
[2016-08-18] MEDS: SODIUM CHLORIDE 0.9% FLUSH 5 ML FLUSH FLUSH SCH ×2 (10:56→21:07)
[2016-08-18] MEDS: OXYBUTYNIN CHLORIDE 5 MG TAB PO SCH ×2 (10:56→21:02)
--- NOTE | 2016-08-18 13:56 | HHI.GIFU ---
Subjective Remarks patient is resting in bed, requiring about food, some mild abdomen pain upon palpation (Jose David Barragan GERRAD) Objective Vitals I&O Vital Signs Date Time Temp Pulse Resp B/P Pulse Ox O2 Delivery O2 Flow Rate FiO2 08/18/16 08:00 95.8 110 24 135/63 96 08/18/16 07:42 93 Nasal Cannula 3.00 08/18/16 05:32 97.8 118 20 103/69 96 08/18/16 01:09 98.9 101 18 141/69 94 08/17/16 20:48 95 Nasal Cannula 3.00 08/17/16 20:38 99.2 106 18 145/65 94 08/17/16 20:05 107 08/17/16 15:41 98.7 106 20 137/77 95 08/17/16 13:54 15 I/O 08/17/16 08/17/16 08/17/16 08/18/16 08/18/16 08/18/16 07:00 15:00 23:00 07:00 15:00 23:00 Output Total 500 ml Balance -500 ml Output Urine Total 500 ml # Voids 1 # Bowel Movements 0 0 Laboratory Laboratory Tests Test 08/18/16 08:26 White Blood Count 24.5 Red Blood Count 3.62 Hemoglobin 10.5 Hematocrit 33.4 Mean Corpuscular Volume 92.4 Mean Corpuscular Hemoglobin 29.2 Mean Corpuscular Hemoglobin 31.6 Concent Red Cell Distribution Width 15.1 Platelet Count 247 Mean Platelet Volume 10.7 Neutrophils (%) (Auto) 88.5 Lymphocytes (%) (Auto) 5.2 Monocytes (%) (Auto) 6.1 Eosinophils (%) (Auto) 0.1 Basophils (%) (Auto) 0.1 Neutrophils # (Auto) 21.7 Lymphocytes # (Auto) 1.3 Monocytes # (Auto) 1.5 Eosinophils # (Auto) 0.0 Basophils # (Auto) 0.0 CBC Comment DIFF FINAL Differential Comment Sodium Level 139 Potassium Level 3.7 Chloride Level 106 Carbon Dioxide Level 21.0 Anion Gap 12 Blood Urea Nitrogen 38 Creatinine 1.88 Estimat Glomerular Filtration 27 Rate Random Glucose 53 Calcium Level 6.8 Protein Corrected Calcium 7.4 Total Bilirubin 0.6 Aspartate Amino Transf 64 (AST/SGOT) Alanine Aminotransferase 40 (ALT/SGPT) Alkaline Phosphatase 94 Total Protein 5.9 Albumin 2.3 Triglycerides Level 49 Lipase 901 Hepatitis A IgM Antibody NEGATIVE Hepatitis B Surface Antigen NEGATIVE Hepatitis B Core IgM Antibody NEGATIVE Hepatitis C Antibody NEGATIVE Date/Time Procedure Status Source Growth 08/16/16 17:20 Aerobic Blood Culture - Preliminary Resulted Blood Peripheral NO GROWTH IN 2 DAYS 08/16/16 17:20 Anaerobic Blood Culture - Preliminary Resulted Blood Peripheral NO GROWTH IN 2 DAYS Imaging Last Impressions Chest X-Ray 08/16/16 1647 Signed Impressions: Service Date/Time: Tuesday, August 16, 2016 16:59 - CONCLUSION: 1. Elevation of the left hemidiaphragm as described above. 2. Minimal bibasilar parenchymal changes. Lizandro Schuler MD FACR Abdomen/Pelvis CT 08/16/16 0000 Signed Impressions: Service Date/Time: Tuesday, August 16, 2016 18:11 - CONCLUSION: Acute pancreatitis. Severe hepatic steatosis. Status post splenectomy, cholecystectomy and hysterectomy. Nonobstructing right renal calculus. Air within the urinary bladder. No evidence of extra intestinal abscess. Mohamud Palencia MD Physical Exam HEENT: Pupils round and reactive to light; normocephalic; atraumatic; no jaundice. Throat is clear. NECK: Neck is supple, no JVD, no lymphadenopathy. CHEST: Chest is clear to auscultation and percussion. CARDIAC: Regular rate and rhythm with no murmur gallop or rubs. ABDOMEN: Soft, nondistended, nontender; no hepatosplenomegaly; bowel sounds are present in all four quadrants. EXTREMITIES: No clubbing, cyanosis, or edema. SKIN: Normal; no rash; no jaundice. CLAIMS CONFIGURATION ANALYST: No focal deficits; alert and oriented times three. (Yung,Jose David [facility]) Assessment and Plan Plan - Acute pancreatitis/first episode- This could be secondary to alcohol intake, or abx She was on recent abx for bronchitis,can't recall the name, She was started 2 weeks ago on Toviaz for bladder issues. patient has hx of cholecystectomy, [place] 25005--->901, she drinks a couple of drinks daily, triglycerides normal Zosyn, NPO. Lipase trending down - Sepsis- elevated WBC, lactic acid, fever,abx - Fatty liver- she drinks daily, LFTs with slight elevation in AST, hepatitis panel negative, this is most likely alcohol related - Anemia- no signs of bleeding, could be dilutional effect - DOLLY- IV - DM, HTN per attending Plan: - clear liquids - EGD in the am to r/o PUD - NPO mn - Obtain consents - Cont. hydration - Monitor labs - Await IGG-4 - alcohol cessation - Supportive care - Patient seen and examined by dr. Bartlett and myself and this note is written on his behalf. (Jose David Barragan) Physician Comments Patient seen and examined Agree with above Continue with current supportive care Monitor labs Plan EGD for tomorrow (Kevin Bartlett MD) Jose David Barragan Aug 18, 2016 13:55 Kevin Bartlett MD Aug 18, 2016 21:54
--- NOTE | 2016-08-18 15:02 | HHI.PR ---
Subjective Remarks No new complaints. Objective Vitals Vital Signs Date Time Temp Pulse Resp B/P Pulse Ox O2 Delivery O2 Flow Rate FiO2 08/18/16 12:00 99.2 107 20 127/64 96 08/18/16 08:00 95.8 110 24 135/63 96 08/18/16 07:42 93 Nasal Cannula 3.00 08/18/16 05:32 97.8 118 20 103/69 96 08/18/16 01:09 98.9 101 18 141/69 94 08/17/16 20:48 95 Nasal Cannula 3.00 08/17/16 20:38 99.2 106 18 145/65 94 08/17/16 20:05 107 08/17/16 15:41 98.7 106 20 137/77 95 08/17/16 08/17/16 08/18/16 15:00 23:00 07:00 Output Total 500 ml Balance -500 ml Output Urine Total 500 ml # Voids 1 # Bowel Movements 0 0 Result Diagram: 08/18/16 0826 08/18/16 0826 Imaging Last Impressions Chest X-Ray 08/16/16 1647 Signed Impressions: Service Date/Time: Tuesday, August 16, 2016 16:59 - CONCLUSION: 1. Elevation of the left hemidiaphragm as described above. 2. Minimal bibasilar parenchymal changes. Lizandro Schuler MD FACR Abdomen/Pelvis CT 08/16/16 0000 Signed Impressions: Service Date/Time: Tuesday, August 16, 2016 18:11 - CONCLUSION: Acute pancreatitis. Severe hepatic steatosis. Status post splenectomy, cholecystectomy and hysterectomy. Nonobstructing right renal calculus. Air within the urinary bladder. No evidence of extra intestinal abscess. Mohamud Palencia MD Objective Remarks General: NAD, AAOx3 Chest: Bilateral wheeze Cardiac: Regular Abd: +BS, mildly distended, epigastric tenderness Ext: No edema A/P Problem List: (1) Pancreatitis, acute Status: Acute Plan: - Comgmt with GI - Pt admitted with 3 days of nausea and abd pain with reported low grade fevers - Labs at admission revealed Lipase over 10,000 - CT Abd/pelvis (08/16) --> Acute pancreatitis, severe hepatic steatosis, s/p splenectomy, cholecystectomy and hysterectomy, nonobstructing right renal calculus, and air within the urinary bladder. - Could be alcohol induced pancreatitis vs. medication induced vs. combination of the two. - Pt admits to daily alcohol use, drinks 3-4 whiskey drinks per day. - Pt had also recently been started on Doxycycline 100mg po BID for dysuria and Toviaz 4mg daily for overactive bladder on 08/06/16. - diet: clears, NPO after MN for EGD in AM - Cont. IVF 125ml/hr of NS, monitor for any signs of volume overload. - Pain meds PRN - Triglycerides and IgG4 are ordered - Alcohol withdrawal precautions. - Ativan PRN - Recheck Lipase, CMP, CBC in AM - Supportive care - DVT prophylaxis with SCDs (2) Sepsis Status: Acute Plan: - Pt admitted with leukocytosis, elevated lactic acid level, and tachycardia - This may likely reactive secondary to pancreatitis - Blood cultures (08/16) aerobic bottle: staph species, coagulase negative - Continue zosyn - WBC 26.2 (08/17/16), 24.5 (08/18/16) - UA is ordered - Monitor labs (3) Acute kidney injury Status: Acute Plan: - Review of outpt labs indicate baseline CKD, stage 3 with GFR in the mid 40's - Labs at admission were acutely worsened from baseline. - Pt had improvement with IVF - Monitor labs (4) COPD (chronic obstructive pulmonary disease) Status: Chronic Plan: - Pt with a hx of COPD and reports that she recently had an acute exacerbation around 4-5 weeks ago and was on Steroids and Abx but she completed these around 4 weeks ago - Cont. home meds - Duonebs Q6HWA and Q2H PRN - Supplemental O2 as needed (5) Diabetes Status: Chronic Plan: - Hold OHA (Glimepiride 1mg daily, Metformin 1000mg BID) - NovoLog SSI - Accu checks (6) Hypertension Status: Chronic Plan: - Hold Lisinopril 5mg po daily - Clonidine PRN Problem Qualifiers (1) Pancreatitis, acute: Qualified Code: K85.90 - Acute pancreatitis, unspecified complication status, unspecified pancreatitis type (2) Sepsis: Qualified Code: A41.9 - Sepsis, due to unspecified organism (3) Diabetes: Qualified Code: E11.8 - Type 2 diabetes mellitus with complication, without long-term current use of insulin (4) Hypertension: Qualified Code: I10 - Essential hypertension Carroll Evangelista DO Aug 18, 2016 15:01
--- NOTE | 2016-08-18 16:23 | RADRPT ---
EXAM DATE/TIME: 08/18/2016 15:25 [facility] COMPARISON: CHEST SINGLE AP, August 16, 2016, 16:59. INDICATIONS : Shortness of breath. MEDICAL HISTORY : Hernia, hiatal. Diabetes, ovarian cancer, cervical cancer. SURGICAL HISTORY : Hysterectomy. Appendectomy. ENCOUNTER: Subsequent ACUITY: 3 days PAIN SCORE: Non-responsive. LOCATION: Bilateral chest FINDINGS: Compared to the study of 08/11/2016 there is somewhat better aeration. Lung volumes are larger. The heart remains minimally enlarged. Pulmonary vascularity is normal. There is no alveolar consolidati on. CONCLUSION: Interval improvement as described above. Lizandro Schuler MD FACR on August 18, 2016 at 16:16 Board Certified Radiologist. This report was verified electronically.
[2016-08-18] MEDS: CALCIUM CARBONATE 500 MG CHEWABLE TAB CHEW SCH ×2 (16:58→21:02)
[2016-08-18] MEDS ORDERED: LACTATED RINGER'S 1000 ML IV SCH (18:15)
[2016-08-18] MEDS ORDERED: METOPROLOL TARTRATE 25 MG TAB PO PRN (18:15)
[2016-08-18] MEDS ORDERED: SODIUM CHLORID 0.9% 500 ML IV SCH (18:15)
[2016-08-18] MEDS ORDERED: INSULIN HUMAN REGULAR 1,000 UNITS/10 ML VIAL SQ PRN (18:15)
[2016-08-19] VITALS (7 sets, daily range): BP systolic 125–142; BP diastolic 64–77; PULSE 92–102; RESP 16–24; TEMP 95.3–98.4; O2SAT 94–97
[2016-08-19] MEDS: HYDROmorphone HCL PF 1 MG/ML VIAL IV PRN ×3 (00:52→09:26)
[2016-08-19] MEDS: PIPERACIL-TAZO 3.375 GM PREMIX 50 ML IV SCH ×3 (05:22→23:13)
[2016-08-19] MEDS: INSULIN ASPART SUPPLEMENTAL SCALE SQ SCH ×4 (06:00→21:52)
[2016-08-19] MEDS: RESP: ALBUTEROL 2.5 MG/IPRATROPIUM 0.5 MG NEB (SCH) NEB ×3 (08:00→20:51)
[2016-08-19 08:29] LABS: AUTOMATED NEUTROPHIL # 11.9 TH/MM3 (1.8-7.7); BASOPHIL % 0.3 % (0.0-2.0); EOSINOPHIL # 0.1 TH/MM3 (0-0.4); EOSINOPHIL % 0.8 % (0.0-4.0); HEMO FLAGS DIFF FINAL; LYMPH % 3.5 % (9.0-44.0); LYMPHOCYTE # 0.5 TH/MM3 (1.0-4.8); MEAN CORPUSCULAR HGB CONC 31.9 % (32.0-36.0); NEUT % 83.4 % (16.0-70.0); PLATELET COUNT 246 TH/MM3 (150-450); RED CELL DISTRIBUTION WIDTH 14.9 % (11.6-17.2); WHITE BLOOD COUNT 14.2 TH/MM3 (4.0-11.0)
[2016-08-19] MEDS: CALCIUM CARBONATE 500 MG CHEWABLE TAB CHEW SCH ×2 (09:00→21:50)
[2016-08-19] MEDS: OXYBUTYNIN CHLORIDE 5 MG TAB PO SCH ×2 (09:00→21:50)
[2016-08-19] MEDS: CHOLECALCIFEROL (VIT D3) 1000 UNIT TAB PO SCH (09:00)
[2016-08-19] MEDS: ASPIRIN EC 81 MG TABEC PO SCH (09:00)
[2016-08-19 09:02] LABS: BICARBONATE 20.3 MEQ/L (21.0-32.0); MAGNESIUM 1.6 MG/DL (1.5-2.5); POTASSIUM 3.2 MEQ/L (3.5-5.1)
[2016-08-19] MEDS: SODIUM CHLOR 0.9% 1000 ML INJ 1,000 ML IV SCH ×2 (09:25→15:05)
[2016-08-19] MEDS: SODIUM CHLORIDE 0.9% FLUSH 5 ML FLUSH FLUSH SCH ×2 (09:25→21:51)
[2016-08-19] MEDS: TIOTROPIUM BROMIDE 18 MCG INH INH SCH (09:26)
[2016-08-19 09:36] LABS: CALCIUM-PROTEIN CORRECTED 7.4 MG/DL (8.5-10.1)
[2016-08-19] MEDS ORDERED: PROPOFOL 200 MG/20 ML AMP IV ONE (11:54)
[2016-08-19] MEDS ORDERED: CALCIUM GLUCONATE INJ 1 GM in SODIUM CHLORIDE 0.9% INJ 100 ML IV ONE (12:00)
--- NOTE | 2016-08-19 12:15 | PD.PROCEDR ---
GI Procedure REFERRING PHYSICIAN Dr. Evangelista PROCEDURE PERFORMED EGD INDICATION FOR PROCEDURE Abdominal pain pancreatitis PROCEDURE: The procedure, risks and benefits were discussed with Ms. Gonzalez and informed consent was obtained. Anesthesia sedated her with Diprivan. She was placed in the left lateral decubitus position. EGD: The Pentax videoscope was introduced through the oropharynx and advanced to the second portion of the duodenum under direct visualization. Retroflexion was performed in the stomach. FINDINGS: The esophagus this was normal The stomach there were surgical changes compatible with fundoplication otherwise gastric mucosa was unremarkable The duodenum this was normal ESTIMATED BLOOD LOSS: None SPECIMENS REMOVED: None COMPLICATIONS: None IMPRESSION: Surgical changes compatible with a Niko fundoplication Otherwise normal EGD PLAN: Advance diet Monitor labs Supportive care Kevin Bartlett MD Aug 19, 2016 12:12
[2016-08-19] MEDS ORDERED: POTASSIUM CHLORIDE 20 MEQ CONTROLLED RELEASE TAB PO ONE (13:30)
--- NOTE | 2016-08-19 13:31 | HHI.PR ---
Subjective Remarks Pt reports that her abd pain is improving slowly She is tolerating clear liquid diet Pt had EGD today which was negative. She has increased work of breathing today and is wheezing while getting her breathing treatment. Objective Vitals Vital Signs Date Time Temp Pulse Resp B/P Pulse Ox O2 Delivery O2 Flow Rate FiO2 08/19/16 12:12 100 18 140/71 94 08/19/16 12:07 103 18 133/65 95 08/19/16 12:02 98.6 102 18 99/62 94 08/19/16 10:45 98.4 102 22 125/69 95 08/19/16 08:51 98.1 98 16 142/64 94 08/19/16 01:00 98.4 102 22 125/69 95 08/18/16 21:00 100 08/18/16 20:04 95 Nasal Cannula 3.00 08/18/16 20:00 96.1 99 22 150/67 95 08/18/16 15:40 98.9 108 20 120/67 94 141/61 107/70 08/18/16 08/18/16 08/19/16 15:00 23:00 07:00 Intake Total 0 ml Output Total 720 ml Balance 0 ml -720 ml Intake Oral 0 ml Output Urine Total 720 ml # Voids 2 2 Result Diagram: 08/19/16 0730 08/19/16 0730 Other Results Laboratory Tests Test 08/18/16 08/19/16 08:26 07:30 White Blood Count 24.5 TH/MM3 14.2 TH/MM3 Red Blood Count 3.62 MIL/MM3 3.40 MIL/MM3 Hemoglobin 10.5 GM/DL 9.9 GM/DL Hematocrit 33.4 % 31.0 % Mean Corpuscular Volume 92.4 FL 91.0 FL Mean Corpuscular Hemoglobin 29.2 PG 29.0 PG Mean Corpuscular Hemoglobin 31.6 % 31.9 % Concent Red Cell Distribution Width 15.1 % 14.9 % Platelet Count 247 TH/MM3 246 TH/MM3 Mean Platelet Volume 10.7 FL 10.5 FL Neutrophils (%) (Auto) 88.5 % 83.4 % Lymphocytes (%) (Auto) 5.2 % 3.5 % Monocytes (%) (Auto) 6.1 % 12.0 % Eosinophils (%) (Auto) 0.1 % 0.8 % Basophils (%) (Auto) 0.1 % 0.3 % Neutrophils # (Auto) 21.7 TH/MM3 11.9 TH/MM3 Lymphocytes # (Auto) 1.3 TH/MM3 0.5 TH/MM3 Monocytes # (Auto) 1.5 TH/MM3 1.7 TH/MM3 Eosinophils # (Auto) 0.0 TH/MM3 0.1 TH/MM3 Basophils # (Auto) 0.0 TH/MM3 0.0 TH/MM3 CBC Comment DIFF FINAL DIFF FINAL Differential Comment Sodium Level 139 MEQ/L 140 MEQ/L Potassium Level 3.7 MEQ/L 3.2 MEQ/L Chloride Level 106 MEQ/L 108 MEQ/L Carbon Dioxide Level 21.0 MEQ/L 20.3 MEQ/L Anion Gap 12 MEQ/L 12 MEQ/L Blood Urea Nitrogen 38 MG/DL 39 MG/DL Creatinine 1.88 MG/DL 1.63 MG/DL Estimat Glomerular Filtration 27 ML/MIN 31 ML/MIN Rate Random Glucose 53 MG/DL 69 MG/DL Calcium Level 6.8 MG/DL 6.7 MG/DL Protein Corrected Calcium 7.4 MG/DL 7.4 MG/DL Total Bilirubin 0.6 MG/DL Aspartate Amino Transf 64 U/L (AST/SGOT) Alanine Aminotransferase 40 U/L (ALT/SGPT) Alkaline Phosphatase 94 U/L Total Protein 5.9 GM/DL 5.7 GM/DL Albumin 2.3 GM/DL Triglycerides Level 49 MG/DL Lipase 901 U/L 340 U/L Hepatitis A IgM Antibody NEGATIVE Hepatitis B Surface Antigen NEGATIVE Hepatitis B Core IgM Antibody NEGATIVE Hepatitis C Antibody NEGATIVE Magnesium Level 1.6 MG/DL Imaging Last Impressions Chest X-Ray 08/16/16 1647 Signed Impressions: Service Date/Time: Tuesday, August 16, 2016 16:59 - CONCLUSION: 1. Elevation of the left hemidiaphragm as described above. 2. Minimal bibasilar parenchymal changes. Lizandro Schuler MD FACR Abdomen/Pelvis CT 08/16/16 0000 Signed Impressions: Service Date/Time: Tuesday, August 16, 2016 18:11 - CONCLUSION: Acute pancreatitis. Severe hepatic steatosis. Status post splenectomy, cholecystectomy and hysterectomy. Nonobstructing right renal calculus. Air within the urinary bladder. No evidence of extra intestinal abscess. Mohamud Palencia MD Objective Remarks General: NAD, AAOx3 Chest: Bilateral wheeze, increased respiratory effort today Cardiac: Regular Abd: +BS, mildly distended, minimal tenderness Ext: No edema A/P Problem List: (1) Pancreatitis, acute Status: Acute Plan: - Comgmt with GI - Pt admitted with 3 days of nausea and abd pain with reported low grade fevers - Labs at admission revealed Lipase over 10,000 - CT Abd/pelvis (08/16) --> Acute pancreatitis, severe hepatic steatosis, s/p splenectomy, cholecystectomy and hysterectomy, nonobstructing right renal calculus, and air within the urinary bladder. - Could be alcohol induced pancreatitis vs. medication induced vs. combination of the two. - Pt admits to daily alcohol use, drinks 3-4 whiskey drinks per day. - Pt had also recently been started on Doxycycline 100mg po BID for dysuria and Toviaz 4mg daily for overactive bladder on 08/06/16. - Lipase has improved today to 340 - Pt had EGD today which noted anatomy consistent with Vielka Fundoplication otherwise negative. - Pt is on clear liquid diet - Cont. IVF 125ml/hr of NS, monitor for any signs of volume overload. - Pain meds PRN - Triglycerides are 49 - IgG4 is pending - Alcohol withdrawal precautions. - Ativan PRN - Monitor CMP, CBC in AM - Supportive care - DVT prophylaxis with SCDs (2) Sepsis Status: Acute Plan: - Pt admitted with leukocytosis, elevated lactic acid level, and tachycardia - This may likely reactive secondary to pancreatitis - Blood cultures (08/16) aerobic bottle: staph species, coagulase negative - Continue zosyn - WBC 26.2 (08/17/16), 24.5 (08/18/16), 14.2 (08/19/16) - UA is ordered - Monitor labs (3) Acute kidney injury Status: Acute Plan: - Review of outpt labs indicate baseline CKD, stage 3 with GFR in the mid 40's - Labs at admission were acutely worsened from baseline. - Labs slightly improved today - Monitor labs (4) COPD (chronic obstructive pulmonary disease) Status: Chronic Plan: - Pt with a hx of COPD and reports that she recently had an acute exacerbation around 4-5 weeks ago and was on Steroids and Abx but she completed these around 4 weeks ago - Cont. home meds - Duonebs Q6HWA and Q2H PRN - Pt having increased work of breathing today and more wheezing. - Add Solumedrol - Add Mucinex - CXR - Supplemental O2 as needed (5) Diabetes Status: Chronic Plan: - Hold OHA (Glimepiride 1mg daily, Metformin 1000mg BID) - NovoLog SSI - Accu checks (6) Hypertension Status: Chronic Plan: - Hold Lisinopril 5mg po daily - Clonidine PRN Assessment and Plan Patient examined. Assessment and plan formulated with Luna Hamilton PA-C. I agree with the above. Problem Qualifiers (1) Pancreatitis, acute: Qualified Code: K85.90 - Acute pancreatitis, unspecified complication status, unspecified pancreatitis type (2) Sepsis: Qualified Code: A41.9 - Sepsis, due to unspecified organism (3) Diabetes: Qualified Code: E11.8 - Type 2 diabetes mellitus with complication, without long-term current use of insulin (4) Hypertension: Qualified Code: I10 - Essential hypertension Luna Hamilton Aug 19, 2016 13:31 Carroll Evangelista DO Aug 22, 2016 11:04
--- NOTE | 2016-08-19 14:44 | RADRPT ---
EXAM DATE/TIME: 08/19/2016 14:26 [facility] COMPARISON: CHEST PA & LAT, May 03, 2016, 11:22. INDICATIONS : Shortness of breath, cough, congestion. MEDICAL HISTORY : Chronic obstructive pulmonary disease. Hernia, hiatal. Diabetes, ovarian cancer, cervical cance r. SURGICAL HISTORY : Appendectomy. Hysterectomy. ENCOUNTER: Subsequent ACUITY: 4 - 6 days PAIN SCORE: 0/10 LOCATION: Bilateral chest FINDINGS: PA and lateral views of the chest demonstrate elevation left hemidiaphragm. Minimal left basal atelec tasis. Right lung clear. Heart mildly enlarged.. The cardiomediastinal contours are unremarkable. O sseous structures are intact. CONCLUSION: Left basilar atelectasis and elevation left hemidiaphragm. Mild cardiomegaly. Go Ross MD on August 19, 2016 at 14:42 Board Certified Radiologist. This report was verified electronically.
[2016-08-19] MEDS: methylPREDNISolone SOD SUCC 125 MG/2 ML VIAL IV PUSH SCH (14:51)
[2016-08-19] MEDS: guaiFENesin E.R. 600 MG TAB PO SCH ×2 (15:04→21:50)
[2016-08-20] VITALS (9 sets, daily range): BP systolic 139–157; BP diastolic 67–76; PULSE 81–104; RESP 16–22; TEMP 96.9–98.1; O2SAT 93–98
[2016-08-20] MEDS: methylPREDNISolone SOD SUCC 125 MG/2 ML VIAL IV PUSH SCH ×2 (03:07→14:37)
[2016-08-20] MEDS: PIPERACIL-TAZO 3.375 GM PREMIX 50 ML IV SCH (05:44)
[2016-08-20] MEDS: INSULIN ASPART SUPPLEMENTAL SCALE SQ SCH ×4 (07:00→21:00)
[2016-08-20] MEDS: RESP: ALBUTEROL 2.5 MG/IPRATROPIUM 0.5 MG NEB (SCH) NEB ×4 (07:44→19:47)
[2016-08-20 08:32] LABS: MEAN CELL VOLUME 91.1 FL (80.0-100.0); MEAN CORPUSCULAR HEMOGLOBIN 29.2 PG (27.0-34.0); MEAN CORPUSCULAR HGB CONC 32.1 % (32.0-36.0); PLATELET COUNT 281 TH/MM3 (150-450); RED BLOOD COUNT 3.51 MIL/MM3 (4.00-5.30); RED CELL DISTRIBUTION WIDTH 15.2 % (11.6-17.2); REVIEW FLAG FINAL; WHITE BLOOD COUNT 16.1 TH/MM3 (4.0-11.0)
[2016-08-20] MEDS: guaiFENesin E.R. 600 MG TAB PO SCH ×2 (08:52→21:31)
[2016-08-20] MEDS: ASPIRIN EC 81 MG TABEC PO SCH (08:53)
[2016-08-20] MEDS: CALCIUM CARBONATE 500 MG CHEWABLE TAB CHEW SCH ×2 (08:53→21:33)
[2016-08-20] MEDS: OXYBUTYNIN CHLORIDE 5 MG TAB PO SCH ×2 (08:53→21:33)
[2016-08-20] MEDS: CHOLECALCIFEROL (VIT D3) 1000 UNIT TAB PO SCH (08:53)
[2016-08-20 08:56] LABS: BICARBONATE 17.5 MEQ/L (21.0-32.0); CALCIUM-PROTEIN CORRECTED 7.5 MG/DL (8.5-10.1); POTASSIUM 3.8 MEQ/L (3.5-5.1); TOTAL BILIRUBIN ADULT 0.4 MG/DL (0.2-1.0)
[2016-08-20] MEDS: TIOTROPIUM BROMIDE 18 MCG INH INH SCH (09:21)
[2016-08-20] MEDS: SODIUM CHLORIDE 0.9% FLUSH 5 ML FLUSH FLUSH SCH ×2 (09:21→21:31)
[2016-08-20] MEDS: SODIUM CHLOR 0.9% 1000 ML INJ 1,000 ML IV SCH (09:26)
--- NOTE | 2016-08-20 13:05 | HHI.PR ---
Subjective Remarks Pt overall is feeling better She is still on 2L via NC She states that she has had 4 loose stools today but states that she typically gets loose stools while on antibiotics Objective Vitals Vital Signs Date Time Temp Pulse Resp B/P Pulse Ox O2 Delivery O2 Flow Rate FiO2 08/20/16 12:00 96.9 81 18 141/67 96 08/20/16 08:00 97.9 89 22 148/76 94 08/20/16 07:45 98 Nasal Cannula 2.50 08/20/16 04:00 97.7 81 20 139/69 98 08/20/16 00:00 97.8 88 16 145/69 95 08/19/16 20:52 96 Nasal Cannula 2.00 08/19/16 20:00 95.3 92 24 139/77 97 08/19/16 16:00 98.4 94 18 138/70 97 08/19/16 08/19/16 08/20/16 15:00 23:00 07:00 Intake Total 100 ml Balance 100 ml Other 100 ml # Voids 3 2 Result Diagram: 08/20/16 0758 08/20/16 0758 Other Results Laboratory Tests Test 08/19/16 08/20/16 07:30 07:58 White Blood Count 14.2 TH/MM3 16.1 TH/MM3 Red Blood Count 3.40 MIL/MM3 3.51 MIL/MM3 Hemoglobin 9.9 GM/DL 10.3 GM/DL Hematocrit 31.0 % 32.0 % Mean Corpuscular Volume 91.0 FL 91.1 FL Mean Corpuscular Hemoglobin 29.0 PG 29.2 PG Mean Corpuscular Hemoglobin 31.9 % 32.1 % Concent Red Cell Distribution Width 14.9 % 15.2 % Platelet Count 246 TH/MM3 281 TH/MM3 Mean Platelet Volume 10.5 FL 10.4 FL Neutrophils (%) (Auto) 83.4 % Lymphocytes (%) (Auto) 3.5 % Monocytes (%) (Auto) 12.0 % Eosinophils (%) (Auto) 0.8 % Basophils (%) (Auto) 0.3 % Neutrophils # (Auto) 11.9 TH/MM3 Lymphocytes # (Auto) 0.5 TH/MM3 Monocytes # (Auto) 1.7 TH/MM3 Eosinophils # (Auto) 0.1 TH/MM3 Basophils # (Auto) 0.0 TH/MM3 CBC Comment DIFF FINAL Differential Comment Sodium Level 140 MEQ/L 139 MEQ/L Potassium Level 3.2 MEQ/L 3.8 MEQ/L Chloride Level 108 MEQ/L 111 MEQ/L Carbon Dioxide Level 20.3 MEQ/L 17.5 MEQ/L Anion Gap 12 MEQ/L 11 MEQ/L Blood Urea Nitrogen 39 MG/DL 32 MG/DL Creatinine 1.63 MG/DL 1.38 MG/DL Estimat Glomerular Filtration 31 ML/MIN 38 ML/MIN Rate Random Glucose 69 MG/DL 138 MG/DL Calcium Level 6.7 MG/DL 7.1 MG/DL Protein Corrected Calcium 7.4 MG/DL 7.5 MG/DL Magnesium Level 1.6 MG/DL Total Protein 5.7 GM/DL 6.4 GM/DL Lipase 340 U/L Total Bilirubin 0.4 MG/DL Aspartate Amino Transf 65 U/L (AST/SGOT) Alanine Aminotransferase 45 U/L (ALT/SGPT) Alkaline Phosphatase 127 U/L Albumin 2.3 GM/DL Imaging Last Impressions Chest X-Ray 08/16/16 1647 Signed Impressions: Service Date/Time: Tuesday, August 16, 2016 16:59 - CONCLUSION: 1. Elevation of the left hemidiaphragm as described above. 2. Minimal bibasilar parenchymal changes. Lizandro Schuler MD FACR Abdomen/Pelvis CT 08/16/16 0000 Signed Impressions: Service Date/Time: Tuesday, August 16, 2016 18:11 - CONCLUSION: Acute pancreatitis. Severe hepatic steatosis. Status post splenectomy, cholecystectomy and hysterectomy. Nonobstructing right renal calculus. Air within the urinary bladder. No evidence of extra intestinal abscess. Mohmaud Palencia MD Objective Remarks General: NAD, AAOx3 Chest: Improved air movement, slight wheeze Cardiac: Regular Abd: +BS, mildly distended, nontender Ext: No edema A/P Problem List: (1) Pancreatitis, acute Status: Acute Plan: - Comgmt with GI - Pt admitted with 3 days of nausea and abd pain with reported low grade fevers - Labs at admission revealed Lipase over 10,000 - CT Abd/pelvis (08/16) --> Acute pancreatitis, severe hepatic steatosis, s/p splenectomy, cholecystectomy and hysterectomy, nonobstructing right renal calculus, and air within the urinary bladder. - Could be alcohol induced pancreatitis vs. medication induced vs. combination of the two. - Pt admits to daily alcohol use, drinks 3-4 whiskey drinks per day. - Pt had also recently been started on Doxycycline 100mg po BID for dysuria and Toviaz 4mg daily for overactive bladder on 08/06/16. - Lipase has improved today to 340 - Pt had EGD today which noted anatomy consistent with Vielka Fundoplication otherwise negative. - Pt is on clear liquid diet advance diet as tolerated - Stop IVF - Pain meds PRN - Triglycerides are 49 - IgG4 is pending - Alcohol withdrawal precautions. - Ativan PRN - Labs in AM - Supportive care - DVT prophylaxis with SCDs (2) Sepsis Status: Acute Plan: - Pt admitted with leukocytosis, elevated lactic acid level, and tachycardia - This may likely reactive secondary to pancreatitis - Blood cultures (08/16) aerobic bottle: staph auricularis, ross sensitive - Continue zosyn - WBC 26.2 (08/17/16), 24.5 (08/18/16), 14.2 (08/19/16), 16.1 (08/20/16), we expect a rise in the WBC count with initiation of steroids on 08/19 - Change to oral Levaquin - Monitor labs (3) Acute kidney injury Status: Acute Plan: - Review of outpt labs indicate baseline CKD, stage 3 with GFR in the mid 40's - Labs at admission were acutely worsened from baseline. - Labs slightly improved today with Cr 1.38 - Repeat labs in AM - Monitor labs (4) COPD (chronic obstructive pulmonary disease) Status: Chronic Plan: - Pt with a hx of COPD and reports that she recently had an acute exacerbation around 4-5 weeks ago and was on Steroids and Abx but she completed these around 4 weeks ago - Cont. home meds - Duonebs Q6HWA and Q2H PRN - Pt having increased work of breathing today and more wheezing. - Pt started on Solu-Medrol 60mg Q12H on 08/19/16 - Convert to oral Prednisone this evening. - Cont. Mucinex - CXR (08/19) --> Left basilar atelectasis and elevation of left hemidiaphragm, mild cardiomegaly. - IS - Acapella - Supplemental O2 as needed (5) Diabetes Status: Chronic Plan: - Hold OHA (Glimepiride 1mg daily, Metformin 1000mg BID) - NovoLog SSI - Accu checks (6) Hypertension Status: Chronic Plan: - Resume Lisinopril 5mg po daily - Clonidine PRN Assessment and Plan Patient examined. Assessment and plan formulated with Luna Hamilton PA-C. I agree with the above. Problem Qualifiers (1) Pancreatitis, acute: Qualified Code: K85.90 - Acute pancreatitis, unspecified complication status, unspecified pancreatitis type (2) Sepsis: Qualified Code: A41.9 - Sepsis, due to unspecified organism (3) Diabetes: Qualified Code: E11.8 - Type 2 diabetes mellitus with complication, without long-term current use of insulin (4) Hypertension: Qualified Code: I10 - Essential hypertension Luna Hamilton Aug 20, 2016 13:05 Carroll Evangelista DO Aug 22, 2016 11:05
[2016-08-20] MEDS ORDERED: PILL SPLITTER OTHER PRN (13:45)
[2016-08-20] MEDS ORDERED: LEVOFLOXACIN 500 MG TAB PO ONE (14:00)
[2016-08-20] MEDS: predniSONE 20 MG TAB PO SCH (21:32)
[2016-08-20] MEDS ORDERED: PHENOL 1.4% SOLN 180 ML BTL MT PRN (22:30)
[2016-08-21] VITALS: BP 128/51; PULSE 83; RESP 18; TEMP 96.4; O2SAT 92
[2016-08-21 04:00] VITALS: BP 130/63; PULSE 60; RESP 20; TEMP 97.8; O2SAT 92
[2016-08-21] MEDS: INSULIN ASPART SUPPLEMENTAL SCALE SQ SCH ×2 (06:21→11:00)
[2016-08-21 07:56] LABS: AUTOMATED NEUTROPHIL # 15.1 TH/MM3 (1.8-7.7); BASOPHIL # 0.1 TH/MM3 (0-0.2); BASOPHIL % 0.4 % (0.0-2.0); HEMATOCRIT 28.8 % (35.0-46.0); LYMPH % 3.4 % (9.0-44.0); LYMPHOCYTE # 0.6 TH/MM3 (1.0-4.8); MEAN CELL VOLUME 91.5 FL (80.0-100.0); MEAN CORPUSCULAR HEMOGLOBIN 29.6 PG (27.0-34.0); MEAN CORPUSCULAR HGB CONC 32.4 % (32.0-36.0); MONO % 5.8 % (0.0-8.0); NEUT % 90.4 % (16.0-70.0); PLATELET COUNT 260 TH/MM3 (150-450); RED BLOOD COUNT 3.15 MIL/MM3 (4.00-5.30); RED CELL DISTRIBUTION WIDTH 15.2 % (11.6-17.2); WHITE BLOOD COUNT 16.7 TH/MM3 (4.0-11.0)
[2016-08-21] MEDS: RESP: ALBUTEROL 2.5 MG/IPRATROPIUM 0.5 MG NEB (SCH) NEB ×2 (08:00→14:00)
[2016-08-21 08:02] VITALS: O2SAT 96
[2016-08-21 08:03] LABS: HEMO FLAGS AUTO DIFF
[2016-08-21 08:18] VITALS: BP 142/65; PULSE 90; RESP 20; TEMP 95.7; O2SAT 95
[2016-08-21 08:18] LABS: BICARBONATE 20.2 MEQ/L (21.0-32.0); POTASSIUM 3.6 MEQ/L (3.5-5.1)
[2016-08-21 09:09] LABS: BANDS 41 % (0-6); CORRECTED NUCLEATED RBC 1 /100 WBC (0-0); MYELOCYTES 2 % (0-0); NEUTROPHIL # MANUAL DIFF 16.2 TH/MM3 (1.8-7.7); POLYS (SEG NEUTROPHILS) 54 % (16-70); WBC DIFF SAMPLE 100
[2016-08-21 09:10] LABS: ACANTHOCYTES OCC (NORMAL); HELMET CELLS OCC (NORMAL); KERATOCYTES OCC (NORMAL); PLATELET ESTIMATE SMEAR NORMAL (NORMAL); PLATELET MORPHOLOGY ENLARGED (NORMAL); SCAN/DIFF FINAL DIFF MANUAL; TARGET CELLS 1+ (NORMAL)
[2016-08-21] MEDS: CALCIUM CARBONATE 500 MG CHEWABLE TAB CHEW SCH (10:20)
[2016-08-21] MEDS: guaiFENesin E.R. 600 MG TAB PO SCH (10:21)
[2016-08-21] MEDS: OXYBUTYNIN CHLORIDE 5 MG TAB PO SCH (10:21)
[2016-08-21] MEDS: SODIUM CHLORIDE 0.9% FLUSH 5 ML FLUSH FLUSH SCH (10:21)
[2016-08-21] MEDS: predniSONE 20 MG TAB PO SCH (10:21)
[2016-08-21] MEDS: ASPIRIN EC 81 MG TABEC PO SCH (10:21)
[2016-08-21] MEDS: CHOLECALCIFEROL (VIT D3) 1000 UNIT TAB PO SCH (10:22)
[2016-08-21] MEDS: TIOTROPIUM BROMIDE 18 MCG INH INH SCH (10:22)
[2016-08-21] MEDS ORDERED: GLIM1TAB PO (10:58)
[2016-08-21] MEDS ORDERED: ADVA250A INH (10:58)
[2016-08-21] MEDS ORDERED: PRED10 PO (11:08)
[2016-08-21] MEDS ORDERED: IPRA0.02 NEB (11:08)
[2016-08-21] MEDS ORDERED: ALBU0.08 NEB (11:08)
[2016-08-21] MEDS ORDERED: LEVA500T PO (11:08)
[2016-08-21] MEDS ORDERED: LEVOFLOXACIN 500 MG TAB PO ONE (11:15)
--- NOTE | 2016-08-21 11:53 | HHI.DCPOC ---
Discharge Care Plan Diagnosis: (1) Pancreatitis, acute (2) Acute kidney injury (3) Diabetes (4) Hypertension Goals to Promote Your Health * To prevent worsening of your condition and complications - Followup with Dr. Jaeger in 1 week, call for an appt. - Followup with Dr. Bartlett in 2 weeks, call for an appt. - Pt is to avoid all alcohol. Maintain a low fat diabetic diet - She is to complete another 3 days of Levaquin 500mg once daily - Pt will use Albuterol/Ipratropium nebulizer treatments every 6 hours when awake for the next 3-4 days, then decreased to twice daily for 3-4 days, then use as needed. - Pt will be on a prolonged steroid taper of 30mg twice daily x 1 more day, then decrease to 20mg twice daily for 3 days, then decrease to 10mg twice daily x 3 days, then decrease to 10mg once daily x 3 days, then stop. Directions to Meet Your Goals Take your medications as prescribed Follow your dietary instruction Follow activity as directed Keep your appointments as scheduled Take your immunizations and boosters as scheduled If your symptoms worsen call your PCP, if no PCP go to Urgent Care Center or Emergency Room Smoking is Dangerous to Your Health. Avoid second hand smoke Call the 24-hour hour crisis hotline for domestic abuse at Luna Hamilton Aug 21, 2016 11:53 Carroll Evangelista DO Aug 22, 2016 11:06
[2016-08-21] MEDS ORDERED: NEBULIZER1 MI1 (12:02)
--- NOTE | 2016-08-21 12:02 | HHI.DS ---
Discharge Summary Admission Date Aug 16, 2016 at 19:48 Discharge Date: Aug 21, 2016 Admitting Diagnosis acute pancreatitis, sepsis, acute kidney injury (1) Pancreatitis, acute Diagnosis: Principal (2) Sepsis Diagnosis: Secondary (3) Acute kidney injury Diagnosis: Secondary (4) COPD (chronic obstructive pulmonary disease) Diagnosis: Secondary (5) Diabetes Diagnosis: Secondary (6) Hypertension Diagnosis: Secondary Consultants Dr. Kevin Bartlett - GI Brief History 71-year-old female that presents to the ED for evaluation of epigastric pain as well as chest pain. Per patient she's had this for the past 2-3 days. Per patient his been worsening with today being the worse today. Per patient he radiates to the back. Per patient she does have a history of COPD and feels short of breath. Per patient most of the pain is actually in the epigastric area on the abdomen. Per patient she's had normal bowel movements her last bowel movement being yesterday. Patient has had nausea. Per patient the pain is severe sharp 8 out of 10 and feels more constant. She's not been able to eat anything because of the pain. She has not taken anything for this. Per patient she's not been able to keep anything down and she did not take any of her medications today. She has an allergy to morphine. She denies any numbness , tilling, weakness. No trauma. No sick contacts. States having chills and fevers. Per patient on she started having generalized weakness and cold like symptoms and thought he was just a cold but he never went away. Now she is worse. She denies any recent travel. Nothing seems to make the symptoms better. Touching the abdomen makes it worse. Lab and CT show acute pancreatitis with lab evidence of sepsis will admit ,patient was on medication for recent UTI. CBC/BMP: 08/21/16 0625 08/21/16 0625 Significant Findings Laboratory Tests Test 08/19/16 08/20/16 08/21/16 07:30 07:58 06:25 White Blood Count 14.2 TH/MM3 16.1 TH/MM3 16.7 TH/MM3 (4.0-11.0) (4.0-11.0) (4.0-11.0) Red Blood Count 3.40 MIL/MM3 3.51 MIL/MM3 3.15 MIL/MM3 (4.00-5.30) (4.00-5.30) (4.00-5.30) Hemoglobin 9.9 GM/DL 10.3 GM/DL 9.3 GM/DL (11.6-15.3) (11.6-15.3) (11.6-15.3) Hematocrit 31.0 % 32.0 % 28.8 % (35.0-46.0) (35.0-46.0) (35.0-46.0) Mean Corpuscular Hemoglobin 31.9 % Concent (32.0-36.0) Neutrophils (%) (Auto) 83.4 % 90.4 % (16.0-70.0) (16.0-70.0) Lymphocytes (%) (Auto) 3.5 % 3.4 % (9.0-44.0) (9.0-44.0) Monocytes (%) (Auto) 12.0 % (0.0-8.0) Neutrophils # (Auto) 11.9 TH/MM3 15.1 TH/MM3 (1.8-7.7) (1.8-7.7) Lymphocytes # (Auto) 0.5 TH/MM3 0.6 TH/MM3 (1.0-4.8) (1.0-4.8) Monocytes # (Auto) 1.7 TH/MM3 1.0 TH/MM3 (0-0.9) (0-0.9) Potassium Level 3.2 MEQ/L (3.5-5.1) Chloride Level 108 MEQ/L 111 MEQ/L 111 MEQ/L (98-107) (98-107) (98-107) Carbon Dioxide Level 20.3 MEQ/L 17.5 MEQ/L 20.2 MEQ/L (21.0-32.0) (21.0-32.0) (21.0-32.0) Blood Urea Nitrogen 39 MG/DL (7-18) 32 MG/DL (7-18) 28 MG/DL (7-18) Creatinine 1.63 MG/DL 1.38 MG/DL 1.12 MG/DL (0.50-1.00) (0.50-1.00) (0.50-1.00) Estimat Glomerular Filtration 31 ML/MIN (>89) 38 ML/MIN (>89) 48 ML/MIN (>89) Rate Random Glucose 69 MG/DL 138 MG/DL 111 MG/DL (74-106) (74-106) (74-106) Calcium Level 6.7 MG/DL 7.1 MG/DL 7.5 MG/DL (8.5-10.1) (8.5-10.1) (8.5-10.1) Protein Corrected Calcium 7.4 MG/DL 7.5 MG/DL (8.5-10.1) (8.5-10.1) Total Protein 5.7 GM/DL (6.4-8.2) Aspartate Amino Transf 65 U/L (15-37) (AST/SGOT) Alkaline Phosphatase 127 U/L (45-117) Albumin 2.3 GM/DL (3.4-5.0) Band Neutrophils % 41 % (0-6) Lymphocytes % 1 % (9-44) Neutrophils # (Manual) 16.2 TH/MM3 (1.8-7.7) Myelocytes 2 % (0-0) Nucleated Red Blood Cells 1 /100 WBC (0-0) Platelet Morphology Comment ENLARGED (NORMAL) Target Cells 1+ (NORMAL) Acanthocytes OCC (NORMAL) Keratocytes OCC (NORMAL) Imaging Last Impressions Chest X-Ray 08/19/16 0000 Signed Impressions: Service Date/Time: August 14:26 - CONCLUSION: Left basilar atelectasis and elevation left hemidiaphragm. Mild cardiomegaly. Go Ross MD Abdomen/Pelvis CT 08/16/16 0000 Signed Impressions: Service Date/Time: Tuesday, August 16, 2016 18:11 - CONCLUSION: Acute pancreatitis. Severe hepatic steatosis. Status post splenectomy, cholecystectomy and hysterectomy. Nonobstructing right renal calculus. Air within the urinary bladder. No evidence of extra intestinal abscess. Mohamud Palencia MD PE at Discharge General: NAD, AAOx3 Chest: Improved air movement, slight wheeze Cardiac: Regular Abd: +BS, mildly distended, nontender Ext: No edema Hospital Course Pt admitted with 3 days of nausea and abd pain with reported low grade fevers. Labs at admission revealed Lipase over 10,000. CT Abd/pelvis (08/16) --> Acute pancreatitis, severe hepatic steatosis, s/p splenectomy, cholecystectomy and hysterectomy, nonobstructing right renal calculus, and air within the urinary bladder. GI was consulted. It was felt that her pancreatitis was likely alcohol induced pancreatitis vs. medication induced vs. combination of the two. Pt admits to daily alcohol use, drinks 3-4 whiskey drinks per day. Pt had also recently been started on Doxycycline 100mg po BID for dysuria and Toviaz 4mg daily for overactive bladder on 08/06/16. Triglycerides are 49. IgG4 is pending. Pt underwent evaluation with EGD to r/o PUD on 08/19/16 which noted anatomy consistent with Vielka Fundoplication otherwise negative. Her Lipase normalized and diet was advanced without any difficulties. At admission she had leukocytosis, elevated lactic acid level, and tachycardia felt to likely be reactive secondary to pancreatitis. Blood cultures (08/16) aerobic bottle: staph auricularis, ross sensitive. Pt was treated with Zosyn (-08/20). WBC 26.2 (08/17/16), 24.5 (08/18/16), 14.2 (08/19/16), 16.1 (08/20/16), we expected a rise in the WBC count with initiation of steroids on 08/19. She was switched to oral Levaquin on 08/20 and will complete another 3 days post discharge of the Levaquin 500mg po daily. Pt had noted acute on chronic renal insufficiency at admission. Review of outpt labs indicate baseline CKD, stage 3 with GFR in the mid 40's. Labs improved with IVF hydration and as oral intake increased. On the day of discharge her Cr 1.12. Pt with a hx of COPD and reports that she recently had an acute exacerbation around 4-5 weeks ago and was on Steroids and Abx but she completed these around 4 weeks ago. She was continued on her home meds during this admission and Duonebs Q6HWA and Q2H PRN. During this admission she had some increased cough and SOB/wheezing. CXR (08/19) --> Left basilar atelectasis and elevation of left hemidiaphragm, mild cardiomegaly. Pt was started on Solu-Medrol 60mg Q12H on 08/19. This was switched to oral Prednisone on 08/20. Pt was able to be weaned off supplemental O2 on 08/20 and passed a walk test with no need for home O2. She will continue her home meds at discharge. We have ordered a nebulizer machine for her and Duoneb treatment. Pt will use Albuterol/Ipratropium nebulizer treatments every 6 hours when awake for the next 3-4 days, then decreased to twice daily for 3-4 days, then use as needed. Pt will be on a prolonged steroid taper of 30mg twice daily x 1 more day, then decrease to 20mg twice daily for 3 days, then decrease to 10mg twice daily x 3 days, then decrease to 10mg once daily x 3 days, then stop. Followup with Dr. Jaeger in 1 week, call for an appt. Followup with Dr. Bartlett in 2 weeks, call for an appt. Pt is to avoid all alcohol. Maintain a low fat diabetic diet Pt Condition on Discharge: Stable Discharge Disposition: Discharge Home Discharge Instructions DIET: Follow Instructions for: Low Fat Diet Activities you can perform: Regular-No Restrictions Follow up Referrals: Gastroenterology - 2 Weeks with Kevin Bartlett MD PCP Follow-up - [address] Frankie Jaeger New Medications: Albuterol Neb (Albuterol Neb) 2.5 Mg/3 Ml Neb 2.5 MG NEB Q6HR NEB PRN SOB/WHEEZING #60 Ref 0 NEBULE Ipratropium Neb (Ipratropium Neb) 0.5 Mg/2.5 Ml Amp 0.5 MG NEB Q6HR NEB PRN SHORTNESS OF BREATH #120 Ref 0 NEBULE Levofloxacin (Levaquin) 500 Mg Tab 500 MG PO DAILY Infection #3 Ref 0 TAB Nebulizer (Nebulizer) 1 Mis Mis 1 EA .ROUTE DIRECTED Breathing Treatment #1 Ref 0 EA Prednisone (Prednisone) 10 Mg Tab 10 MG PO DIRECTED Take 30mg twice daily x 1 day, then decrease to 20mg twice daily x 3 days, then decrease to 10mg twice daily x 3 days, then decrease to 10 mg once daily x 3 days then stop. copd excerbation #27 Ref 0 TAB Continued Medications: Albuterol 18 GM Inh (Ventolin Hfa 18 GM Inh) 90 Mcg/Act Aer 2 PUFF INH Q4-6H PRN SHORTNESS OF BREATH #1 Ref 0 INHALER Aspirin (Aspirin) 81 Mg Tabdr 81 MG PO DAILY TAB Cholecalciferol (Vitamin D) 1,000 Unit Tab 2000 UNITS PO DAILY Nutritional Supplement #1 Ref 0 BOTTLE Fluticasone-Salmeterol Inh (Advair Diskus Inh) 250-50 Mcg/Blist Aer 1 PUFF INH BID Rinse mouth after use. #1 Ref 0 INHALER Glimepiride (Glimepiride) 1 Mg Tab 1 MG PO DAILY Take with breakfast or first main meal Blood Sugar Management #30 Ref 0 TAB Lisinopril (Lisinopril) 5 Mg Tab 5 MG PO DAILY Blood Pressure Management #30 Ref 0 TAB Metformin (Metformin) 1,000 Mg Tab 1000 MG PO BIDPC With meals Blood Sugar Management #60 Ref 0 TAB Oxybutynin (Ditropan) 5 Mg Tab 5 MG PO Q12HR Urinary Symptom Managemen #60 Ref 0 TAB Tiotropium Inh (Spiriva Handihaler) 18 Mcg Cap 18 MCG INH DAILY 1 capsule = 18 mcg COPD #30 Ref 0 CAP Additional Information Patient examined. Assessment and plan formulated with Luna Hamilton PA-C. I agree with the above. Luna Hamilton Aug 21, 2016 12:02 Carroll Evangelista DO Aug 22, 2016 11:06
[2016-08-21 12:14] VITALS: BP 152/80; PULSE 93; RESP 20; TEMP 97.3
[2016-08-21 16:23] VITALS: BP 191/78; PULSE 72; RESP 20; TEMP 95.6
[2016-08-22 23:52] LABS: IGG SUBCLASSES 4 22.1 mg/dL (4-86)
--- NOTE | 2016-08-23 14:54 | EKG ---
Date Performed: 08/16/2016 Time Performed: 18:33:16 PTAGE: 71 years EKG: SINUS TACHYCARDIA ABNORMAL RHYTHM ECG Compared to prior tracing no significant change PREVIOUS TRACING : 05/03/2016 11.26 DOCTOR: Farrukh Palacio Interpretating Date/Time 08/23/2016 14:54:05
== END 2016-08-21 17:45 | disposition home or self-care (01) | DRG 871 ==
LOC: NEPE 16:31 → NEDA 19:48 → N05B 22:44
PROVIDERS: ADMIT Hospitalist; ATTEND Hospitalist
PROC: 0DJ08ZZ Inspection of Upper Intestinal Tract, Via Natural or Artificial Opening Endoscopic (ICD-10-PCS; principal; 2016-08-19 11:05)
DX: A41.9 Sepsis, unspecified organism (principal); K85.90 Acute pancreatitis without necrosis or infection, unspecified; N17.9 Acute kidney failure, unspecified; E11.22 Type 2 diabetes mellitus with diabetic chronic kidney disease; N18.3 Chronic kidney disease, stage 3 (moderate); K76.0 Fatty (change of) liver, not elsewhere classified; J98.11 Atelectasis; J44.9 Chronic obstructive pulmonary disease, unspecified; E86.0 Dehydration; Z87.891 Personal history of nicotine dependence; Z90.81 Acquired absence of spleen; Z88.5 Allergy status to narcotic agent; Z85.41 Personal history of malignant neoplasm of cervix uteri; Z85.43 Personal history of malignant neoplasm of ovary; Z92.3 Personal history of irradiation; K44.9 Diaphragmatic hernia without obstruction or gangrene; N32.81 Overactive bladder; R74.0 Nonspecific elevation of levels of transaminase and lactic acid dehydrogenase [LDH]; R30.0 Dysuria; I12.9 Hypertensive chronic kidney disease with stage 1 through stage 4 chronic kidney disease, or unspecified chronic kidney disease
CPT/HCPCS: 71010; 71020; 74176; 80048; 80053; 80074; 82550; 82784; 82787; 82948; 83605; 83690; 83735; 84155; 84478; 84484; 85007; 85025; 85027; 85610; 85730; 86403; 87040; 87077; 87186; 87205; 93005; 94150; 94620; 94640; 94664; 94667; 94668; 96361; 96374; 96376; J0610; J1170; J2060; J2543; J2930; J7030; J7040; J7512; J7613